=== PATIENT | female | born 1950 | race Caucasian/White ===

== ENCOUNTER 2020-09-18 09:00 | Outpatient (RCR) | payer MEDICARE, OTHER, SELFPAY ==
--- NOTE | 2020-08-16 13:54 | PTOPEVAL ---
INITIAL PHYSICAL THERAPY EVALUATION and PLAN OF CARE Thank you for referring Escobar Jay to [facility].? Escobar is scheduled to be seen for physical therapy? 2x/week for 4 weeks. Please review, sign, date and return this plan of care JULIO. I agree with and certify that the following plan of care is medically necessary. Referring Physician Date Admitting Provider: Attending Provider: Vini Persaud, Referring Provider: *PT Outpatient Evaluation Start: 08/16/20 12:35 Freq: Status: Active Protocol: Document 08/16/20 12:35 JALEEL (Rec: 08/16/20 13:52 JALEEL [id number]) Therapy Assessment Status Assessment Status Assessment Status Evaluation Outpatient Past Medical History Past Medical History Source of Past Medical History Patient Neurological History Hx Neurological Disorders No Significant History Cardiovascular History Hx Hypercholesterolemia Yes Respiratory History Hx Respiratory Disorders No Significant History Gastrointestinal History Hx Diverticulitis Yes Genitourinary History Hx Genitourinary Disorders No Significant History Musculoskeletal History Hx Arthritis Yes: back Hx Other Musculoskeletal Disorders Yes: hyleron injections R knee Endocrine History Hx Hypothyroidism Yes Evaluation Information Problem Diagnosis low back pain Onset June 2020 Subjective Information Busy with getting ready for Query Text:As Reported By Patient/ the holidays - lots of lifting Family , moving of boxes - began to have increase with back pain Pain was present on either side of lower back, then could also shoot across lower back. Had difficulty moving in bed - repositioning. Mornings some discomfort initially. Was worse as the day went on. Gaining some relief of discomfort with anti inflammatory medication from Dr. Persaud. She was involved with a chiropractic office - had access to infrared and ultrasound modalities - not helpful. Had also used ice - didn't help. 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
--- NOTE | 2020-09-18 12:16 | PTOPEVAL ---
PHYSICAL THERAPY DISCHARGE SUMMARY Thank you for referring Escobar Jay to [facility].? Escobar has done well in PT - all goals have been met, HEP updated, and she is to continue with her HEP. I agree with Escobar's discharge from Physical Therapy. Referring Physician Date Admitting Provider: Attending Provider: Vini Persaud, MD Referring Provider: Therapy Assessment Status Assessment Status Assessment Status Discharge Evaluation Information Problem Diagnosis low back pain Subjective Information Escobar reports that after Query Text:As Reported By Patient/ her eye surgery, needed to Family stop exercising for awhile - some return of twinges of discomfort with lifting activities. But she has started to resume them again. Pain Assessment Self Report Pain Assessment Lower Back Reported Pain Level 0 Other Pain Description twinge sensation Lowest Pain Intensity 0 Greatest Pain Intensity 2 Pain Aggravating Factors Exercise/Activity,Lifting Pain Score Pain Score 0: Self Report Cervical and Lumbar ROM Lumbar ROM Lumbar Flexion (0-90) 50 Query Text:Active in Degrees Lumbar Extension (0-40) 20 Query Text:Active in Degrees Lumbar Lateral Flexion Right (0-40) 15 Query Text:Active in Degrees Lumbar Lateral Flexion Left (0-40) 15 Query Text:Active in Degrees Lumbar Comments no discomfort present with trunk ROM this date Palpation Assessment Palpation Palpation In prone - pelvis/sacrum level -P-A mob to sacrum and lumbar spine L5-2 - non tender - good mobility present No increase in paraspinal tissue tension. Special Test-Spine Sacral Special Test Sacral Special Tests Negative standing flexion test - symmetrical SIJ mobility PT Clinical Summary Clinical Summary Protocol: PTEVCODE PT Clinical Summary Modified Oswestry LBP Questionnaire - 8% Escobar has done well in PT. She had a mild flare up of her back pain following eye surgery when she did not perform her HEP. 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 Her trunk AROM has
== END 2020-09-28 08:45 | disposition home or self-care (01) ==
LOC: ANHHIPT 09:00
PROVIDERS: PCP Internal Medicine; Visit Provider Internal Medicine
DX: M54.5 Low back pain (principal)
CPT/HCPCS: 97014; 97110; 97140; 97161; G0283

== ENCOUNTER 2021-06-14 02:23 | Day surgery (SDC) | payer MEDICARE, OTHER, SELFPAY ==
[2021-06-04 10:31] VITALS: BMI 28.3
--- NOTE | 2021-06-14 08:29 | P.PNAN_ITS ---
Anes - Initial Pre Proc Eval Procedure: Operation Date: 06/14/21 10:45 Proposed Procedures p Colonoscopy - Alejandro Craig MD Date/Time: 06/14/21 08:29 Surgeon: Alejandro Craig MD Pre Op Diagnosis: abnormal CAT scan Patient Data Age: 70 Gender: F Height: 1.63 m Weight: 75 kg Allergies Allergy/AdvReac Type Severity Reaction Status Date / Time celecoxib Allergy Severe Swelling Verified 06/14/21 09:27 sulfur Allergy Severe Swelling Verified 06/14/21 09:27 Home Medications Medication Instructions Recorded Confirmed Type Lluvia-Dalton 2 tab-cap PO DAILY 06/04/21 06/14/21 History cholecalciferol (vitamin D3) 250 mcg PO DAILY 06/04/21 06/14/21 History coenzyme Q10 [Co Q-10] 200 mg PO DAILY 06/04/21 06/14/21 History levothyroxine 88 mcg PO DAILY 06/04/21 06/14/21 History tjmfe-2b-zfm-epa-fish oil [[place] 3] 1 cap PO DAILY 06/04/21 06/14/21 History pravastatin 40 mg PO HS 06/04/21 06/14/21 History zolpidem 5 mg PO HS 06/04/21 06/14/21 History Patient hx anesthesia problems: none Family hx anesthesia problems: none Results Review: All pre-operative results and documents have been reviewed as part of the pre-operative evaluation. [facility] Past Medical History Medical History (Updated 06/14/21 @ 08:30 by Aditya Chan MD) Arthritis Hyperlipidemia Hypothyroidism Overweight (BMI 25.0-29.9) Social History Social History Smoking status: Never smoker Alcohol intake: current Drinks per week: 2 Living arrangements: with family Spiritual care concerns: No Anes - Eval Final PreProcedure Day of Procedure 06/14/21 08:29 Patient weight: overweight Heart: regular rate and rhythm Lungs: clear to auscultation and normal air movement Airway: Mallampati scale class II Neurological: alert and oriented Last oral intake: >/= 8 hours ASA classification: II Emergent: no Anesthetic plan: proceed Anesthesia type and monitoring: general GIVS Results Review: All pre-operative results and documents have been reviewed as part of the pre-operative evaluation. Informed Consent: The patient's anesthetic plan and its attendant risks and benefits were discussed with the patient/family/POA. Questions were solicited and answers provided to the satisfaction of the patient/family/POA.
[2021-06-14 09:29] VITALS: BP 148/85; PULSE 89; RESP 16; TEMP 36.7; O2SAT 100; BMI 26.2
[2021-06-14] MEDS: LACTATED RINGERS 1,000 ML 150 ML IV CONT (09:43)
--- NOTE | 2021-06-14 09:51 | WPDGICN ---
Assessment and Plan Assessment and plan (1) Diverticulitis: Code(s): K57.92 - Diverticulitis of intestine, part unspecified, without perforation or abscess without bleeding Status: Acute Assessment and Plan: Patient appears to have had diverticulitis by the results of recent CT scan. Plan is to proceed with colonoscopy to exclude any other explanation for his symptoms. High-fiber diet is advised as some of her symptoms appear to have a spastic component. (2) Abnormal CT scan: Code(s): R93.89 - Abnormal findings on diagnostic imaging of other specified body structures Status: Acute Assessment and Plan: CT scan suggest diverticulitis. Plan is for colonoscopy to exclude any other explanation for her findings. GI Consult Note Consult date/time: 06/14/21 09:51 HPI: Escobar Jay is a 70 year old female Presents for colonoscopy. Patient reports having a normal screening colonoscopy for 5 years ago. Over the last 3 years she has had an annual episode of abdominal pain and has been diagnosed as diverticulitis. In April of this year she developed diffuse bilateral abdominal pain. Associated with irregular bowel movements. Urgent explosive bowel movement shortly after eating. These have persisted. Initially treated with antibiotics in April. She received an additional round of antibiotics [address] scan suggests that she may have diverticulitis. Patient denies any bleeding or weight loss. She states after taking preparation for colonoscopy pain has totally alleviated. Patient denies any fever. She has had no recent travel. She presents today for colonoscopy. Review of Systems Review of Systems: All systems reviewed & are unremarkable except as noted in HPI and below [facility] Past Medical History Medical History (Updated 06/14/21 @ 09:53 by Alejandro Craig MD) Arthritis Hyperlipidemia Hypothyroidism Overweight (BMI 25.0-29.9) Social History Social History Smoking status: Never smoker Alcohol intake: current Drinks per week: 2 Living arrangements: with family Spiritual care concerns: No Meds Home Medications and Allergies Home Medications Medication Instructions Recorded Confirmed Type Lluvia-Dalton 2 tab-cap PO DAILY 06/04/21 06/14/21 History cholecalciferol (vitamin D3) 250 mcg PO DAILY 06/04/21 06/14/21 History coenzyme Q10 [Co Q-10] 200 mg PO DAILY 06/04/21 06/14/21 History levothyroxine 88 mcg PO DAILY 06/04/21 06/14/21 History huzqr-8q-rsb-epa-fish oil [[place] 3] 1 cap PO DAILY 06/04/21 06/14/21 History pravastatin 40 mg PO HS 06/04/21 06/14/21 History zolpidem 5 mg PO HS 06/04/21 06/14/21 History Allergies Allergy/AdvReac Type Severity Reaction Status Date / Time celecoxib Allergy Severe Swelling Verified 06/14/21 09:27 sulfur Allergy Severe Swelling Verified 06/14/21 09:27 Vital Signs Vital Signs - 24 hr 06/14/21 09:29 Temperature 98.1 F Pulse Rate 89 Respiratory Rate 16 Blood Pressure 148/85 H Pulse Oximetry 100 Exam Narrative: Physical exam reveals patient to be alert. Vital signs stable. HEENT exam is unremarkable. Patient is anicteric. Lungs are clear to auscultation and percussion. Heart is without murmur or extra sounds. Abdomen bowel sounds are present soft nontender with no organomegaly. Digital external rectal exam is normal.
[2021-06-14 10:39] VITALS: BP 113/78; PULSE 91; RESP 26; O2SAT 100
[2021-06-14 10:49] VITALS: BP 128/90; PULSE 94; RESP 20; O2SAT 100
[2021-06-14 10:59] VITALS: BP 150/97; PULSE 92; RESP 19; O2SAT 100
== END 2021-06-14 11:07 | disposition home or self-care (01) ==
PROVIDERS: PCP Internal Medicine; Visit Provider Internal Medicine Gastroenterology
PROC: 0DJD8ZZ Inspection of Lower Intestinal Tract, Via Natural or Artificial Opening Endoscopic (ICD-10-PCS; CPT 45378; principal; 2021-06-14 10:45)
DX: K57.30 Diverticulosis of large intestine without perforation or abscess without bleeding (principal); K64.8 Other hemorrhoids; E78.5 Hyperlipidemia, unspecified; E03.9 Hypothyroidism, unspecified
CPT/HCPCS: 45378; J2001; J2704; J7120

== ENCOUNTER → 2021-07-02 10:40 | Outpatient (CLI) | payer MEDICARE, OTHER, SELFPAY ==
--- NOTE | ~2021-07-02 | US_ITS ---
EXAMINATION: US right upper quadrant EXAM DATE: 07/02/2021 10:59 INDICATION: Upper Abdominal Pain TECHNIQUE: Multiple grayscale and Doppler images of the abdomen right upper quadrant were obtained (b y a technologist who performed the scan) and subsequently reviewed. There is no prior study for hugo espinal. FINDINGS: The pancreatic head and body are normal in appearance. The pancreatic tail is not visualized. The l iver has normal echogenicity and contour. There is a left liver lobe cystic region which has several septations, probably a cyst measuring 3.7 x 2.6 x 3.3 cm. There is no evidence of intrahepatic bili saige duct dilation. Portal venous flow was seen in the hepatopedal, normal direction and has normal D oppler waveform. No right-sided hydronephrosis. Common bile duct measures 4 mm, which is normal. The gallbladder wall is normal in thickness, with ex pected amount of distention. No sonographic evidence of pericholecystic fluid. There is no cholelit hiases. Technologist performing exam reports patient did not demonstrate sonographic Cooley's sign. Please note that this sign is less reliable in patients who have received pain medication. IMPRESSION: 1. Left liver lobe lesion likely cyst. 2. Unremarkable gallbladder. Reviewed, dictated and finalized at location A. 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
== END ==
PROVIDERS: PCP Internal Medicine; Visit Provider Internal Medicine
DX: R10.10 Upper abdominal pain, unspecified (principal)
CPT/HCPCS: 76705

== ENCOUNTER 2023-12-30 00:52 | Emergency (ER) | payer MEDICARE, SELFPAY ==
[2023-12-30 00:54] VITALS: BP 171/96; PULSE 90; RESP 16; TEMP 36.6; O2SAT 100
[2023-12-30 01:02] VITALS: BP 168/84; PULSE 83; RESP 15; O2SAT 99
--- NOTE | 2023-12-30 02:13 | ED.GENADULT ---
HPI - General Adult General Chief complaint: Skin/Abscess/Foreign Body Stated complaint: leg swelling and rash Time Seen by Provider: 12/30/23 01:01 Source: patient Limitations: no limitations History of Present Illness HPI narrative: Patient is a 73-year-old female presents to the emergency department complaining of leg swelling bilaterally which she has noticed for the past couple days and seems to be getting worse tonight however it is not starting to improve. Denies any history of this in the past. Patient denies history of heart disease, kidney disease, liver disease. Patient admits to normal urination. Patient denies any chest pain or difficulty breathing. Patient denies any recent injuries or recent illness. Patient denies fevers. Patient denies any new exposures. Patient has not tried anything for the leg swelling the patient admits to recently being switched to a new medication amlodipine and she has been taking this for the past couple weeks. Patient admits to a small rash to the back of her lower legs that she noticed tonight as well that is not painful and non itchy and seems to be overall going away. Related Data Home Medications Medication Instructions Recorded Confirmed Lluvia-Dalton 2 tab-cap PO DAILY 06/04/21 12/08/23 cholecalciferol (vitamin D3) 250 250 mcg PO DAILY 06/04/21 12/08/23 mcg (10,000 unit) capsule coenzyme Q10 200 mg capsule (Co 200 mg PO DAILY 06/04/21 12/08/23 Q-10) cjhdy6-jmq-gtf-other afmcb5w-wnoo 1 cap PO DAILY 06/04/21 12/08/23 oil 350 mg- 400 mg capsule levothyroxine 75 mcg capsule 75 mcg PO DAILY 07/04/22 12/08/23 (Tirosint) Allergies Allergy/AdvReac Type Severity Reaction Status Date / Time celecoxib Allergy Severe Swelling Verified 12/08/23 09:05 sulfur Allergy Severe Swelling Verified 12/08/23 09:05 Review of Systems Review of Systems: All systems reviewed & are unremarkable except as noted in HPI and below PMFSH Past Medical History Medical History Abnormal breast tissue Arthritis Positive DIONNA Carpal tunnel syndrome on right Hyperlipidemia Hypothyroidism Insomnia Vitamin B12 deficiency Vitamin D deficiency Surgical History Surgical History H/O colonoscopy 2020 H/O tubal ligation (~1984) Family History Family History Father Acute myocardial infarction Mother Diabetes mellitus Sibling Atrial fibrillation, chronic sister Social History Social History Smoking status: Never smoker Second hand tobacco smoke exposure: No Alcohol intake: former Drinks per week: 2 Substance use: never Substance use type: does not use Do You Feel Safe in your Home?: Yes Lack of Transportation: No Lack of Food: Never True Current Housing: I Have Housing Concerned About Future Housing: No Difficulty Paying Gas/Electric Bills: No Difficulty Paying for Meds: No Currently Unemployed: No Education: High School Diploma/GED Difficulty w/ Childcare or Family Care: No Living arrangements: with family Additional living arrangements comments: Occupation/Education: retired Gender identity (if verbalized by the patient): Female Sexual Orientation (if Verbalized by the Patient): Straight or Heterosexual Spiritual care concerns: No Agree to blood products: Yes Comments At time of signature, I have reviewed and agree with nursing past medical, surgical, social and family history unless otherwise noted. Please see the nursing chart for further information. There is no relevant family history pertinent to the presenting complaint. Exam Narrative: CONST: No acute distress. Well nourished. HENMT: Head is normocephalic and atraumatic. Moist mucous membranes. No posterior oropharynx erythema.
[2023-12-30 02:20] VITALS: BP 170/88; PULSE 92; RESP 16; O2SAT 98
== END 2023-12-30 02:24 | disposition home or self-care (01) ==
PROVIDERS: Emergency Provider Student in an Organized Health Care Education/Training Program; PCP Nurse Practitioner Family
DX: R60.0 Localized edema (principal); E78.5 Hyperlipidemia, unspecified; E03.9 Hypothyroidism, unspecified; E53.8 Deficiency of other specified B group vitamins; E55.9 Vitamin D deficiency, unspecified; M19.90 Unspecified osteoarthritis, unspecified site
CPT/HCPCS: 99281

== ENCOUNTER 2024-01-15 13:15 | Outpatient (CLI) | payer MEDICARE, SELFPAY ==
--- NOTE | ~2024-01-15 | DEXA_ITS ---
Bone Density Report Name: LAURA DIANE Age: 73 Sex: Female Ethnicity: White Date of : 1950 Indication: postmenopausal; screening for osteoporosis; height loss; Referring Provider: AUNDREA ALCAZAR Study: Bone densitometry was performed. Exam Date: January 15, 2024 Accession number: [id number] Bone Density: Region BMD T-score Z-score Classification AP Spine(L1-L4) 0.843 -1.9 0.4 Osteopenia Femoral Neck (Left) 0.623 -2.0 -0.1 Osteopenia Total Hip (Left) 0.854 -0.7 0.9 Normal Femoral Neck (Right) 0.605 -2.2 -0.3 Osteopenia Total Hip (Right) 0.885 -0.5 1.2 Normal Total Hip Mean 0.869 -0.6 1.1 Normal World Health Organization criteria for BMD impression classify patients as: Normal (T-score at or above -1.0), Osteopenia (T-score between -1.0 and -2.5), or Osteoporosis (T-score at or below -2.5). 10-year Fracture Risk(1): Major Osteoporotic Fracture 13% Hip Fracture 3.0% Reported Risk Factors: [place] (), Neck BMD=0.605, BMI=28.5 (1) FRAX(R) Version 3.08. Fracture probability calculated for an untreated patient. Fracture probability may be lower if the patient has received treatment. Clinical Information Provided by Patient: Has used the following medications: HRT (i.e. estrogen/hormone therapy), Vitamin D, Calcium Patient maximum height was 65 No regular weight bearing exercise Drinks caffeinated beverages Onset of menses at age 15 Number of children 2 Impression: The patient has low bone mass, based on the Right Femoral Neck T-score. The patient has an estimated ten-year risk of hip fracture of 3% and an estimated ten-year risk of major fracture of 13%, based on the WHO FRAX algorithm. Discussion: BONE DENSITY IS LOW AT ONE OR MORE SKELETAL SITES. THE PATIENT'S BMD AND CLINICAL RISK FACTORS CONTRIBUTE TO THIS PATIENT'S INCREASED RISK OF FRACTURE. This patient's lowest T-score is low at one or more skeletal sites. It meets the World Health Organization's (WHO) criteria for ?low bone mass? (T-score between -1.0 and -2.5). The patient's 10-year risk of hip fracture as calculated by FRAX exceeds the threshold where pharmacological therapy is recommended by the National Osteoporosis Foundation (NOF). However, all treatment decisions require clinical judgment and consideration of individual patient factors, including patient preferences, comorbidities, previous drug use, risk factors not captured in the FRAX model (e.g., frailty, falls, vitamin D deficiency, increased bone turnover, interval significant decline in bone density) and possible under or overestimation of fracture risk by FRAX. The patient should follow a healthful lifestyle (good nutrition with adequate calcium and vitamin D, and appropriate weight-bearing exercise). Follow-Up: Consider a repeat BMD and Vertebral Fracture Assessment (VFA) exam in 2 years or sooner if medically nec
== END 2024-01-15 13:16 | disposition home or self-care (01) ==
PROVIDERS: PCP Nurse Practitioner Family; Visit Provider Nurse Practitioner Family
DX: M85.89 Other specified disorders of bone density and structure, multiple sites (principal); N95.8 Other specified menopausal and perimenopausal disorders; Z78.0 Asymptomatic menopausal state; Z13.820 Encounter for screening for osteoporosis
CPT/HCPCS: 77080

== ENCOUNTER 2024-07-06 09:29 | Outpatient (CLI) | payer MEDICARE, SELFPAY ==
--- NOTE | 2024-07-06 09:30 | EST_ITS ---
Patient Info Name: Escobar Jay Age: 73 years : 1950 Gender: Female Ht: 64 in Wt: 160 lbs BSA: 1.83 m2 HR: 67 bpm BP: 136 / 75 mmHg Heart Rhythm: Sinus Rhythm Exam Date: 07/06/2024 10:00 AM Exam Location: Echo Lab Patient Status: Outpatient Admit Date: 07/06/2024 Staff Ordering Physician: Angel Crowe DO Attending Provider: Angel Crowe DO Exercise Technologist: Ashwini Durant RDCS Exercise Physician: Angel Crowe DO Exam Type: CA stress test treadmill Study Info A treadmill exercise stress test was performed. Summary 1. 1. Negative Angel exercise stress test for ischemic ST changes by ECG criteria. 2. 2. Good functional capacity, achieving 7 METs of workload. 3. 3. Appropriate HR response to exercise. 4. 4. Appropriate HR recovery at 1 minute post exercise. 5. 5. No imaging with stress testing. 6. 6. Patient informed of the above results. Protocol: Angel Stress ECG Details Stage: REST Duration (min): 1 min : 32 sec Speed (mph): 0.0 Grade (%): 0 HR (bpm): 67 SBP (mmHg): 136 DBP (mmHg): 75 METS: --- Stage: REST Duration (min): 5 min : 38 sec Speed (mph): 0.0 Grade (%): 0 HR (bpm): 79 SBP (mmHg): 136 DBP (mmHg): 75 METS: --- Stage: STAGE 1 Duration (min): 1 min : 0 sec Speed (mph): 1.7 Grade (%): 10 HR (bpm): 98 SBP (mmHg): 136 DBP (mmHg): 75 METS: --- Stage: STAGE 1 Duration (min): 2 min : 0 sec Speed (mph): 1.7 Grade (%): 10 HR (bpm): 114 SBP (mmHg): 136 DBP (mmHg): 75 METS: --- Stage: STAGE 1 Duration (min): 3 min : 0 sec Speed (mph): 1.7 Grade (%): 10 HR (bpm): 122 SBP (mmHg): 175 DBP (mmHg): 63 METS: --- Stage: STAGE 2 Duration (min): 1 min : 0 sec Speed (mph): 2.5 Grade (%): 12 HR (bpm): 129 SBP (mmHg): 175 DBP (mmHg): 63 METS: --- Stage: STAGE 2 Duration (min): 1 min : 30 sec Speed (mph): 2.5 Grade (%): 12 HR (bpm): 133 SBP (mmHg): 175 DBP (mmHg): 63 METS: --- Stage: RECOVERY Duration (min): 0 min : 29 sec Speed (mph): 0.0 Grade (%): 0 HR (bpm): 128 SBP (mmHg): 184 DBP (mmHg): 64 METS: --- Stage: RECOVERY Duration (min): 1 min : 29 sec Speed (mph): 0.0 Grade (%): 0 HR (bpm): 110 SBP (mmHg): 184 DBP (mmHg): 64 METS: --- Stage: RECOVERY Duration (min): 2 min : 29 sec Speed (mph): 0.0 Grade (%): 0 HR (bpm): 97 SBP (mmHg): 184 DBP (mmHg): 64 METS: --- Stage: RECOVERY Duration (min): 3 min : 4 sec Speed (mph): 0.0 Grade (%): 0 HR (bpm): 93 SBP (mmHg): 187 DBP (mmHg): 89 METS: --- Rest HR: 79 bpm Peak HR: 133 bpm Rest Sys BP: 136 mmHg Peak Sys BP: 187 mmHg Max Pred HR: 148 bpm % Max Pred HR: 90 % Target HR: 126 bpm Max RPP: 24,871 bpm*mmHg [place] Score: 0 Termination Reason: Reached target heart rate or workload Cardiac Symptoms: Shortness of breath Max ST Seg Deviation: -0.80 mm Total Time: 4 min : 30 sec Rest Gomez BP: 75 mmHg Peak Gomez BP: 89 mmHg Angina Score: None Total METS: 7.1 Resting ECG Sinus rhythm. Stress ECG No ST changes. Arrhythmias None. Report Signatures
== END 2024-07-06 09:30 | disposition home or self-care (01) ==
PROVIDERS: PCP Nurse Practitioner Family; Visit Provider Internal Medicine Cardiovascular Disease
DX: R07.9 Chest pain, unspecified (principal)
CPT/HCPCS: 93017

== ENCOUNTER 2024-11-13 16:53 | Emergency (ER) | payer MEDICARE, SELFPAY ==
--- NOTE | ~2024-11-13 | XR_ITS ---
XR ankle LT min 3V Ordering provider: ELIJAH Snow History: . fall from lawnmower today, medial pain . Comparison: None. FINDINGS: BONES: No acute fracture or dislocation. JOINT SPACES: The ankle mortise is normal. SOFT TISSUES: Normal. Calcaneal spur. Ossification of the insertion of the tendo Achilles. IMPRESSION: No acute osseous abnormality left ankle. Reviewed, dictated and finalized at location A.
--- NOTE | ~2024-11-13 | XR_ITS ---
XR foot LT min 3V Ordering provider: ELIJAH Snow History: . fall from lawnmower, medial pain . Comparison: None. FINDINGS: BONES: No acute fracture or dislocation. JOINT SPACES: Normal. No tarsal coalition. SOFT TISSUES: Normal. Ossification of the insertion of the tendo Achilles is seen. IMPRESSION: No acute osseous abnormality left foot. Reviewed, dictated and finalized at location A.
--- OUTSIDE RECORDS SUMMARY | 2024-11-13 16:56 | XMS_ITS | Clinical Summary ---
Author Organization [facility] Address [address] [place] [address] Care Team Providers Care Passenger Booking Clerk Name Role Phone Jonathan Molina MD Primary Care Provider [phone] Allergies Active Allergy Reactions Criticality Noted Date Comments Celecoxib Swelling,Unknown,Oth er (see comment) High 03/05/2021 Celebrex Sulfa Antibiotics Swelling,Unknown,Oth er (see comment) Medium 07/03/2010 Numb tongue Tongue swelling Substance with sulfonamide structure and antibacterial mechanism of action (substance) Medications levothyroxine 88 MCG tablet Take 88 mcg by mouth daily. Active pravastatin 40 MG tablet Take 1 tablet (40 mg total) by mouth daily. @@ HS Active HYDROcodone-aceta minophen 5-325 MG tabletIndications :Acute Pain < 7 Day Supply Take 1 tablet by mouth every 6 (six) hours as needed for Pain. Indications: Acute Pain < 7 Day Supply 10 tablet Active ondansetron 4 MG disintegrating tablet Take 1 tablet (4 mg total) by mouth every 8 (eight) hours as needed for Nausea. 20 tablet Active lisinopril (PRINIVIL) 10 MG tablet Take 1 tablet (10 mg total) by mouth daily. Active TIROSINT 75 MCG capsule Take 1 capsule by mouth every morning. Active zolpidem (AMBIEN) 5 MG tablet Take 1 tablet (5 mg total) by mouth nightly at bedtime. at bedtime. Active vitamin E 100 UNIT capsule Take by mouth. Ac tive calcium citrate-vitamin D-magnesium 600 mg/1000 IU/300 mg oral liquid Take by mouth. Act claritza Vitamin B12 100 MCG tablet Take 0.5 tablets (50 mcg total) by mouth daily. Active cefdinir (OMNICEF) 300 MG Cap capsuleIndication s:Bronchitis Take 1 capsule (300 mg total) by mouth 2 (two) times daily. 20 capsule Active cyanocobalamin (VIT B-12) 250 MCG Tab INJECT 1 ML EVERY WEEK BY SUBCUTANEOUS ROUTE IN THE MORNING FOR 90 DAYS. 2024 Discontinued( Pt. elected to discontinue med) benzonatate (TESSALON PERLES) 100 MG capsuleIndication s:Bronchitis Take 1 capsule (100 mg total) by mouth 3 (three) times daily as needed for Cough. 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 Vitamin B12 deficiency (non anemic) 12/25/2022 Dysfunction of both eustachian tubes 03/01/2022 Sensorineural hearing loss (SNHL) of both ears 0 03/01/2022 Diverticulitis 03/04/2019 Overview (10/18/2024): Avoid consuming nuts abs berries to avoid flair ups Hypercholesterolemia 10/06/2017 Hyperthyroidism 10/06/2017 Encounters Date Type Department Care Team Description 10/18/2024 2:15 PM CDT Office Visit [facility] [id number] [place] [phone] Karina Brock PA Cough (X 2-3 weeks, chest congestion) 10/18/2024 12:39 PM CDT - 10/18/2024 11:59 PM CDT Hospital Encounter [facility] [address] [place] [id number] Karina Brock PA Discharge Disposition: Home or Self Care (Routine Discharge) 10/18/2024 Travel 10/15/2024 9:52 AM CDT - 10/15/2024 11:59 PM CDT Hospital Encounter [facility] [address] [place] [address] Dat Munoz MD Discharge Disposition: Home or Self Care (Routine Discharge) 10/15/2024 Travel from Last 3 Months Immunizations Name Administration Dates Next Due Influenza Adult (Generic) 10/12/2013 Tdap (Boostrix) 06/19/2023,10/12/2013 Family History Medical History Relation Comments Breast Cancer Neg Hx Social History Tobacco Use Types Packs/Day Years Used Date Smoking Tobacco: Never Smokeless Tobacco: Never Tobacco Cessation:Counseling Given: No Alcohol Use Standard Drinks/Week Comments Not Currently 0 (1 standard drink = 0.6 oz pur e alcohol) PHQ-2 Answer Date Recorded Patient Health Questionnaire-2 Score 0 10/18/2024 Comments No Sex and Gender Information Value Date Recorded Sex Assigned at Not on file Legal Sex Female 7:46 PM CDT Gender Identity Female 08/14/2021 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 Sexual Orientation Not on file Last Filed Vital Signs Vital Sign Reading Time Taken Comments Blood Pressure 132/76 10/18/2024 11:59 AM CDT Pulse 80 10/18/2024 11:59 AM CDT Temperature 36.6 C (97.9 F) 10/18/2024 11:59 AM CDT Respiratory Rate 20 10/18/2024 11:59 AM CDT Oxygen Saturation 98% 10/18/2024 11:59 AM CDT Inhaled Oxygen Concentration - - Weight 72.8 kg (160 lb 6.4 oz) 10/18/2024 11:59 AM CDT Height 165.1 cm (5' 5 ) 10/18/2024 11:59 AM CDT Body Mass Index 26.69 10/18/2024 11:59 AM CDT Plan of Treatment Health Maintenance Due Date Last Done Comments Colorectal Cancer Screening Colonoscopy (10 Years) 1950 Hepatitis C 1969 Zoster Vaccines (1 of 2) 2001 Annual Medicare Wellness Visit 2016 Dexa Scan (General) 2016 Pneumococcal Vaccine: 65+ Years (1 of 1 - PCV) 2016 COVID-19 Vaccine ( season) 2024 RSV Immunization or 60+ Years (1 - 1-dose 75+ series) 2026 Mammogram Screening 10/15/2026 10/15/2024, 05/21/2024, 11/10/2023, Additional history exists DTaP, Tdap and Td Vaccines (3 - Td or Tdap) 06/19/2033 06/19/2023, 10/12/2013 PHQ-2 (Physician [place]) Completed 10/18/2024 Meningococcal B Vaccine Aged Out No l onger eligible based on patient's age to complete this topic Meningococcal Vaccine Aged Out No dulce lexi eligible based on patient's age to complete this topic RSV Immunizations Under 20 Months Aged Out No longer eligible based on patient's age to complete this topic Procedures Procedure Name Priority Date/Time Associated Diagnosis Comments XR CHEST PA+LAT STAT 10/18/2024 12:58 PM CDT Chronic cough Bronchitis MG SCREENING W OSVALDO ANTONIETA DIGI Routine 10/15/2024 10:38 AM CDT Encounter for screening mammogram for malignant neoplasm of breast from Last 3 Months Results * XR CHEST PA+LAT (10/18/2024 12:58 PM CDT) Anatomical Region Laterality Modality Chest Radiographic Hortencia ging 10/18/2024 12:5 8 PM CDT Impressions 10/18/2024 1:00 PM CDT =====IMPRESSION:===== No acute findings. Ordered By: KARINA BROCK Interpreted By: Miguel Hurst, 10/18/2024 12:58 PM Narrative 10/18/2024 1:00 PM CDT [facility] [address] [place] [address] EXAMINATION: PA AND LATERAL CHEST Exam date/time: 10/18/2024 12:47 PM Reason For Exam: chronic cough Comparison: None Technique: 2 views. Findings: Heart size normal. Proximal airways unremarkable. No suspicious pulmonary lesion, pneumothorax, or pleural effusion. Procedure Note Terrance Hurst MD - 10/18/2024 [place] [id number] [facility]. [place] [id number] EXAMINATION: PA AND LATERAL CHEST Exam date/time: 10/18/2024 12:47 PM Reason For Exam: chronic cough Comparison: None Technique: 2 views. Findings: Heart size normal. Proximal airways unremarkable. No suspiciouspulmonary lesion, pneumothorax, or pleural effusion. =====IMPRESSION:===== No acute findings. Ordered By: KARINA BROCK Interpreted By: Miguel Hurst, 10/18/2024 12:58 PM us Karina Brock PA GENERAL IMAGING Final Result * MG SCREENING W OSVALDO ANTONIETA DIGI (10/15/2024 10:38 AM CDT) Anatomical Region Laterality Modality Breast Bilateral Mammography 10/15/2024 4:06 PM CDT Impressions 10/15/2024 4:18 PM CDT ===== IMPRESSION: ===== 1. Stable mammographic appearance with no new findings to suggest malignancy in either breast. Assessment: ACR BI-RADS 2 - BENIGN FINDING(S) Recommendation: 1:Routine Screening Bilateral Comments: Ordered By: DAT MUNOZ Interpreted By: Miguel Hurst, 10/15/2024 4:06 PM Narrative 10/15/2024 4:18 PM CDT [facility] [address] [place], [place] [id number] EXAMINATION: Digital bilateral screening mammogram with 3-D tomosynthesis EXAM DATE/TIME: 10/15/2024 10:00 AM REASON FOR EXAM: Screening COMPARISON: 05/21/2024. 10/15/2023 Technique: Digital screening mammography of both breasts was performed in addition to 3-D Tomosynthesis technique. This study was read with the assistance of a computer-aided detection system. Tissue density: The breasts are heterogeneously dense, which may obscure small masses. Findings: There is no new focal asymmetry, dominant mass lesion, area of skin thickening, or cluster of suspicious appearing calcifications in either breast to suggest malignancy. us Dat Munoz MD MAMMO Final Result from Last 3 Months Insurance MEDICARE [facility] Care Teams Passenger Booking Clerk Relationship Specialty Start Date End Date Jonathan Molina MD [address] [place] [id number] PCP - General FAMILY PRACTICE 03/27/22
--- OUTSIDE RECORDS SUMMARY | 2024-11-13 16:56 | XMS_ITS | Data Portability ---
Author Organization [facility], [facility] Address [address] [address] Care Team Providers Care Sliding Joint Maker Name Role Phone ROBB HODGE Primary Care Provider STACEY Boyd Referring Provider Assessment No assessment recorded. Plan of Treatment Reminders Order Date Submit Date Provider Last Modified By Organization Details Last Modified Time Details Appointments None recorded. Lab testosteron e, free + total, serum - Non-fasting 2017 018 [email or web address] Not available 8 08:13:18 CBC w/ auto diff 2017 018 SHI Not available 8 09:32:33 vitamin D, 25-hydroxy, total, serum 2017 018 [email or web address] Not available 8 08:13:18 Referral None recorded. Procedures None recorded. Surgeries None recorded. Imaging XR, knee 2017 018 [email or web address] Not available 8 17:45:57 US, lower extremity, nonvascular 2017 018 [email or web address] Not available 8 09:43:01 Medication Orders hydrocodone 5 mg-acetamin ophen 325 mg tablet 2017 018 [email or web address] Not available 8 15:54:15 clindamycin HCl 300 mg capsule 2017 018 [email or web address] Not available 8 17:45:57 diazepam 10 mg tablet 2017 018 [email or web address] Not available 8 17:45:57 Patient TargetsNo targets recorded. Patient Instructions Encounter Date Encounter Id Patient Instructions Last Modified By Organization Details Last Modified Time 10/07/2017 [id number] knee arthritis: care instructions Not available 10/07/2017 17:45:57 After review of radiographic and examination findings, we discussed treatment options available. These included corticosteroid injection, viscous supplementation, bracing of the knee, observation, surgical referral, physical therapy, pain management, and/or stem cell treatment. The patient is definitely interested in non-surgical alternatives. If they choose to undergo stem cell biologic treatment, it is understood that it is considered investigational and off label use of the product by FDA, that it is not a covered benefit by insurance, and that there is no guarantee of symptom improvement. If opting to undergo biologic treatment, an order was given for laboratory studies to be completed. We reviewed the stem cell treatment and depth. Information packet was given to and reviewed with the patient. All questions were answered related to the procedure, post procedure expectations, and cost associated with treatment. We also discussed that sometimes more than one biologic treatment is required to attain desired efficacy. They will call our office if they desire to schedule an appointment for treatment or review any of the other treatment options discussed. Patient will also RTC or call for any worsening, questions or concerns prn. [email or web address] Not available 10/10/2017 09:43:14 11/11/2017 [id number] knee arthritis: care instructions [email or web address] Not available 11/11/2017 16:30:56 Reason for Referral None Reported. Results Created Date Observation Date Name Description Value Unit Range Abnormal Flag Note LastModifiedBy Organization Detail LastModifiedTime Result Notes None recorded. Problems Name Problem SNOMED Code Status Onset Date Resolution Date Notes Provider Name and Address Organization Details Recorded Time Hypercholestero lemia 96683058 Active 2017 Rui linton [facility] 8 16:43:33 Hyperthyroidism 58259054 Active 2017 Rui linton [facility], [facility] 8 16:43:42 Problem Notes None recorded. Medical Equipment None Reported. Allergies Allergen ID Allergen Name Allergen Category Reaction Reaction Severity Criticality Documentation Date Start Date Code Code System Note Provider Name and Address Organization Details Recorded Time 46340 Substance with sulfonami de structure and antibacte rial mechanism of action (substanc e) medicatio n Not available Not available Not available 10/07/2017 26475 8003 SNOMED Rui Dutta [facility] 8 16:43:10 93641 Celebrex medicatio n Not available Not available Not available 10/07/2017 82341 7 RxNorm Rui Dutta [facility] 8 16:43:18 Medications Name Sig Start Date Stop Date Status Note LastModified by Organization Details LastModified Time doxycycline hyclate 100 mg capsule active Not Available Not Available N ot Available clindamycin HCl 300 mg capsule Take 3 capsules (total of 900mg) po one hour prior to procedure. One time dose. active Not Available Not Available No t Available azithromycin 250 mg tablet active Not Available Not Availabl e Not Available pravastatin 40 mg tablet active Not Available Not Available Not Available hydrocodone 5 mg-acetaminop hen 325 mg tablet Take 1 tablet every 6 hours by oral route with meals. active Not Available Not Available No t Available peg-electroly te solution 420 gram oral solution active Not Available Not Available Not Available doxycycline monohydrate 100 mg capsule active Not Available Not Available Not Available diazepam 10 mg tablet Take 1 tablet(s) 1 hr PRIOR to appointmen t. 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 active Not Available Not Available No t Available Vitals Date Recorded Body height Body mass index (BMI) Body weight Heart rate Systolic blood pressure Diastolic blood pressure Provider Name and Address Organization Details Last Updated DateTime 8 165.1 cm 27.5 kg/m2 32000.7 4 g 80 /min 136 mm[Hg] 78 mm[Hg] Rui Luzmaria [facility] 8 16:42:46 Date Recorded Body height Body mass index (BMI) Body weight Heart rate Systolic blood pressure Diastolic blood pressure Provider Name and Address Organization Details Last Updated DateTime 8 165.1 cm 27.5 kg/m2 50779.7 4 g 93 /min 136 mm[Hg] 87 mm[Hg] Rani Cerna [facility] 8 15:53:43 Social History Question Answer Notes LastModified by Organizat ion Details LastModified Time Tobacco Smoking Status Never Smoker Rui linton [facility], [facility] 10/07/2017 16:44:05 What Is Your Level Of Alcohol Consumption? Occasional [email or web address] Information not available 10/07/2017 What Is Your Occupation? Retired [email or web address] Information not available 10/07/2017 Live Alone Or With Others? With Others [email or web address] Information not available 10/07/2017 Marital Status [email or web address] Informatio n not available 10/07/2017 What Was The Date Of Your Most Recent Tobacco Screening? 11/11/2017 Information not available 02/25/2019 What Types Of Sporting Activities Do You Participate In? Bike [email or web address] Information not available 10/07/2017 General Stress Level Medium [email or web address] Information not available 10/07/2017 Sex: Unknown Functional Status Question Answer Note LastModified by Organization D etails LastModified Time What is your exercise level? Moderate [email or web address] Information not available 10/07/2017 Mental Status None recorded. Family History Relationship Description Onset Age of this Age Resolved Age Notes LastModified by Organization Details LastModified Time Father No current problems or disability [email or web address] Not available 10/07 16:10:41 Mother Diabetes mellitus [email or web address] Not available 2017 16:43:53 Medical History Condition Response Coronary Artery Disease N HIV or AIDS N Gout N Kidney Stones N Hyperthyroidism N Head Trauma/Injury N Hernia N Depression N COPD N Blood Clots N Lung Disease N Hypothyroidism N Pacemaker N Anxiety Disorder N Arthritis N Cancer N Stroke N Neck Injury N Leg or Foot Ulcers N High Cholesterol N Liver Disease N Rheumatoid Arthritis N Headaches N Fibromyalgia N Kidney Disease N Heart Problems N Migraines N Thyroid Problems N Anemia N Multiple Sclerosis N Tendon Tear N Ulcers N Heart Attack ([place]) N Diabetes N Bleeding Disorder N Seizures/Epilepsy N Tuberculosis N Urinary Tract Infection N Back Problems N Diverticulitis N Asthma N Lupus N Peripheral Vascular Disease N Sleep Disorder N GERD/Reflux N Hepatitis N Aneurysm N Heart Disease N Pulmonary Embolism N Hypertension N Osteoporosis N Gynecological HistoryNo gynecological history recorded. Obstetrics History GPAL:G 0 P 0 0 0 0 Past Encounters Encounter ID Performer Location Encounter Start Date Encounter Closed Date Diagnosis/Indication Diagnosis SNOMED-CT Code Diagnosis ICD10 Code Diagnosis Note [id number] Charanjit Nievesonesimo [facility] [address] [place] [address] 10/07/2017 16:01:16 10/07/2017 17:28:50 Osteoarthritis of knee 815970783 M17.11 Bilateral knee pain, RIGHT greater than LEFT, consistent with: RIGHT knee grade 2 medial compartmen t and mild patellofem oral osteoarthr osis; medial meniscal derangemen t with mild extrusion; no instabilit y Or malalignme nt. LEFT knee grade 1 medial compartmen t with mild patellofem oral osteoarthr osis; medial meniscal derangemen t without extrusion; no instabilit y or malalignme nt. Anxiety 94973689 F41.9 Malaise and fatigue 2717 85237 R53.83 E27.1 M89.9 M94.9 Antibiotic prophylaxis indicated 922424154 Z78.9 Derangemen t of meniscus 487936330 M23.306 M23.307 [id number] Stacey Graham [facility] [address] [place] [address] 11/11/2017 15:02:35 11/11/2017 16:59:54 Osteoarthritis of knee 935702146 M17.11 Bilateral knee pain, RIGHT greater than LEFT, consistent with: RIGHT knee grade 2 medial compartmen t and mild patellofem oral osteoarthr osis; medial meniscal derangemen t with mild extrusion; no instabilit y Or malalignme nt. LEFT knee grade 1 medial compartmen t with mild patellofem oral osteoarthr osis; medial meniscal derangemen t without extrusion; no instabilit y or malalignme nt. Health Concerns Section Related Observation LastModified by Organization Detai ls LastModified Time None Recorded Concern Status LastModified by Organization Details LastModified Time None Recorded Advance Directives Directive None Recorded Payers Encounter Date Sequence Insurance Name Policy Number Policy Kaplan Covered Member ID Kaplan Member ID Guarantor Name 10/07/2017 1 [place] Escobar Jay [id number] Escobar Jay 10/07/2017 2 [employer] Alexandra Jay [id number] Escobar Jay 11/11/2017 1 [place] Escobar Jay [id number] Escobar Pierre 11/11/2017 2 [employer] Tijerinafidelia [id number] Escobar Tijerinafidelia Notes Date Note Type Note Provider Name and Address Organization Details Recorded Time 10/07/2017 text/html Escobar Is a pleasant 67-year-old female who presents to clinic today for evaluation of her chronic RIGHT greater than LEFT knee pain. She was initially seen for her knee pain in early 2016 at [facility] by Dr. Hiram Head. She was given a corticosteroid injection to both knees at that time which offered moderate improvement of her LEFT knee pain. X-rays of the knees demonstrated mild primary osteoarthrosis. She continued to have problems with her RIGHT. She did follow-up with FUNMILAYO Agarwal who again injected her RIGHT knee with a corticosteroid in June 2017 and further proceeded with MRI examination. MRI examination dated 07/08/17 revealed a RIGHT knee medial meniscal tear on the posterior horn. She got some improvement for a couple of weeks from the second injection to the RIGHT knee. She does have intermittent, but mild, recurrent symptoms with the LEFT knee. She discussed arthroscopic surgical intervention To the RIGHT knee. She is looking for nonsurgical alternatives to treating her knee pain. Her son-in-law, Pan Leiva, he has been evaluated and treated in our clinic. She is interested in being evaluated for stem cell biologic treatment. She is currently retired but does like to cycle. This does not seem to exacerbate her knee pain. She is otherwise very healthy. ASHLEY Smith [employer] [employer] 11/11/2017 09:06:33 11/11/2017 text/html No internal davis ge - See last visit. ASHLEY Fajardo [employer], [employer] 11/11/2017 17:24:01 OBGyn Episode No OBEpisode recorded.
--- OUTSIDE RECORDS SUMMARY | 2024-11-13 16:56 | XMS_ITS | Clinical Summary ---
Author Organization [facility] [employer] Address [address] [place] [address] Care Team Providers Care Supervisor Sleeping Bag Department Name Role Phone Jonathan Molina MD Primary Care Provider [phone] Allergies Active Allergy Reactions Criticality Noted Date Comments Celecoxib Other (See comments),Swelling High 03/05/2021 Sulfa (Sulfonamide Antibiotics) Swelling Medium 07/03/2010 Tongue swelling Medications Tirosint 75 mcg capsule Take 1 capsule (75 mcg total) by mouth every morning 2 Active pravastatin (PRAVACHOL) 40 mg tablet Take 1 tablet (40 mg total) by mouth nightly 2 Active triamcinolone (NASACORT) 55 mcg nasal inhalerIndicati ons:Dysfunction of both eustachian tubes Administer 2 sprays into each nostril daily 1 g 3 2 Active Active Problems Problem Noted Date Diagnosed Date Dysfunction of both eustachian tubes 03/01/2022 Sensorineural hearing loss (SNHL) of both ears 0 03/01/2022 Surgical History Surgery Date Site/Laterality Comments CARPAL TUNNEL RELEASE EYE SURGERY KNEE SURGERY BLEPHAROPLASTY Bilateral Medical History Medical History Date Comments Thyroid disease HL (hearing loss) Family History Medical History Relation Name Comments Diabetes Mother Heart disease Sister Thyroid disease Sister Relation Name Status Comments Mother Sister Social History Tobacco Use Types Packs/Day Years Used Date Smoking Tobacco: Never Smokeless Tobacco: Never Comments Unknown Sex and Gender Information Value Date Recorded Sex Assigned at Not on file Legal Sex Female 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 Gender Identity Not on file Sexual Orientation Not on file Obstetrics History Last Filed Vital Signs Vital Sign Reading Time Taken Comments Blood Pressure 132/80 07/14/2023 2:32 PM INSTRUMENT REPAIRER HELPER Pulse 87 07/14/2023 2:32 PM INSTRUMENT REPAIRER HELPER Temperature 37.1 C (98.7 F) 07/14/2023 2:32 PM INSTRUMENT REPAIRER HELPER Respiratory Rate 16 07/14/2023 2:32 PM INSTRUMENT REPAIRER HELPER Oxygen Saturation 98% 07/14/2023 2:32 PM INSTRUMENT REPAIRER HELPER Inhaled Oxygen Concentration - - Weight 72.6 kg (160 lb) 07/14/2023 2:32 PM INSTRUMENT REPAIRER HELPER Height 157.5 cm (5' 2 ) 07/14/2023 2:32 PM INSTRUMENT REPAIRER HELPER Body Mass Index 29.26 07/14/2023 2:32 PM INSTRUMENT REPAIRER HELPER Plan of Treatment Health Maintenance Due Date Last Done Comments Breast Cancer Screening-Mammogram 1951 Colon Cancer Screening-Colonoscopy 1950 Depression Screening 1950 Fall Risk Assessment 1950 Hepatitis C Screening 1950 Osteoporosis Screening-Bone Density Scan 1951 Hepatitis B Screening 1969 Zoster Vaccine (1 of 2) 2001 Well Visit 65+ 2016 Pneumococcal vaccine 65+ (2 of 2 - PPSV23) 05/31/2020 05/31/2019 Covid-19 Vaccine ( season) 2024 06/26/2021, 10/25/2020, 10/01/2020 Influenza Vaccine (#1) 2024 , 05/31/2019, 10/12/2013 DTaP/Tdap/Td Vaccine (3 - Td or Tdap) 06/19/2033, 10/12/2013 Insurance MEDICARE [facility] MEDICARE [facility] Care Teams Supervisor Sleeping Bag Department Relationship Specialty Start Date End Date Jonathan Molina MD [address] [place] [id number] PCP - General Family Medicine 07/14/23
--- OUTSIDE RECORDS SUMMARY | 2024-11-13 16:56 | XMS_ITS | Encounter Summary ---
Author Organization [facility] Address [address] [place] [address] Care Team Providers Care Wireless Communications Engineer Name Role Phone Vini Persaud MD Primary Care Provider [phone] Jonathan Molina MD Primary Care Provider [phone] Encounter Details Date Type Department Care Team (Late st Contact Info) Description 01/28/2013 Abstract [facility] CONVERSION [address] [place] [address] , Generic ConversionMD Social History Tobacco Use Types Packs/Day Years Used Date Smoking Tobacco: Never Assessed Comments Unknown Sex and Gender Information Value Date Recorded Sex Assigned at Not on file Legal Sex Female 7:46 PM CDT Gender Identity Female 08/14/2021 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
--- OUTSIDE RECORDS SUMMARY | 2024-11-13 16:56 | XMS_ITS | Data Portability ---
Author Organization [place] [facility], Main Office Address [address] [place] [address] Care Team Providers Care Mingle Operator Name Role Phone ROBB HODGE Primary Care Provider ROBB HODGE Referring Provider Assessment No assessment recorded. Plan of Treatment Reminders Order Date Submit Date Provider Last Modified By Organization Details Last Modified Time Details Appointments None recorded. Lab None recorded. Referral None recorded. Procedures None recorded. Surgeries None recorded. Imaging None recorded. Medication Orders cyanocobala min (vit B-12) 1,000 mcg/mL injection solution 2022 023 [id number], [address], [address], 09:59:49 Tirosint 75 mcg capsule 2022 023 [id number], [address] [place] [address], [address], 3 19:54:09 Patient TargetsNo targets recorded. Patient InstructionsNo instructions recorded. Reason for Referral None Reported. Results Created Date Observation Date Name Description Value Unit Range Abnormal Flag Note LastModifiedBy Organization Detail LastModifiedTime 07/23/20 21 07/26/2021 IGP,R FX APTIM A HPV ALL PTH performed by: Justin Hauser Not Available [facility] [address] [place], [address], 07/26/2021 10:10:47 07/23/20 21 07/26/2021 IGP,R FX APTIM A HPV ALL PTH diagnosis: commen t NEGAT TREVON FOR INTRA EPITH ELIAL LESIO N OR MALIG SHANELL . CELLU GRECIA LAYTON ES ASSOC IATED WITH ATROP HY ARE PRESE NT. Not Available [facility] [address] [place], [address], 07/26/2021 10:10:47 07/23/20 21 07/26/2021 IGP,R FX APTIM A HPV ALL PTH specimen adequacy: commen t Satis facto ry for evalu ation . Endoc ervic al and/o r squam ous metap lasti c cells (endo cervi mayi compo nent) are prese nt. Not Available [facility] [address] [facility] [place], [address], 07/26/2021 10:10:47 07/23/20 21 07/26/2021 IGP,R FX APTIM A HPV ALL PTH clinician provided ICD10: commen t Z12.4 Not Available [facility] [address] [facility] [place], [address], 07/26/2021 10:10:47 07/23/20 21 07/26/2021 IGP,R FX APTIM A HPV ALL PTH . . Not Available [facility] [address] [facility] [place], [address], 07/26/2021 10:10:47 07/23/20 21 07/26/2021 IGP,R FX APTIM A HPV ALL PTH note: commen t The Pap smear is a scree parker test desig torri to aid in the detec tion of aiyana ligna nt and malig nant condi tions of the uteri ne cervi x. It is not a diagn ostic proce dure and shoul d not be used as the sole means of detec ting cervi mayi cance r. Both false -posi tive and false -nega tive repor ts do occur . Not Available [facility] [address] [facility] [place], [address], 07/26/2021 10:10:47 07/23/20 21 07/26/2021 IGP,R FX APTIM A HPV ALL PTH test methodology: commen t This liqui d based ThinP rep(R ) pap test was jude torri with the use of an image guide d systelo m. Not Available [facility] [address] [facility] [place], [address], 07/26/2021 10:10:47 07/23/20 21 07/26/2021 IGP,R FX APTIM A HPV ALL PTH . commen t The HPV DNA refle x crite leonardo were not met with this speci men resul t there fore, no HPV testi ng was perfo rmed. Not Available [facility] [address] [facility] [place], [address], 07/26/2021 10:10:47 03/27/20 22 03/27/2022 US, thyro id No observ ation record ed. [id number] [facility] [address] [place], [address], 10/02/2022 06:51:47 Result Notes None recorded. 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 Procedures Surgical History Date Name Laterality Status Provider Name and Address Organization Details Recorded Time 1 Date of Last Pap Smear completed Not Available [facility] 10/02/2022 06:40:20 1 Most Recent Mammogram completed Not Available [facility] 10/02/2022 06:40:20 5 Orthopedic Surgery completed Not Available [facility] 10/02/2022 06:40:20 5 ACADEMIC SUCCESS COORDINATOR Surgery completed Not Available [facility] 10/03/19 06:40:20 Imaging Results Imaging Date Name Status LastModified by Organiz ation Details LastModified Time 03/27/2022 US, thyroid completed [id number] [facility] [address] [place], [address], 10/02/2022 06:51:47 Procedure Notes None recorded. Medical Equipment None Reported. Allergies Allergen ID Allergen Name Allergen Category Reaction Reaction Severity Criticality Documentation Date Start Date Code Code System Note Provider Name and Address Organization Details Recorded Time 58772 Substance with sulfonami de structure and antibacte rial mechanism of action (substanc e) medicatio n other Not available Not available 10/02/2022 46933 8003 SNOMED rash swell ing in mouth Not Available [facility] 06:51:38 48359 Celebrex medicatio n other severe Not available 10/02/2022 78505 7 RxNorm swell ing mouth Not Available [facility] 06:51:38 Medications Name Sig Start Date Stop Date Status Note LastModified by Organization Details LastModified Time prednisone 10 mg tablet TAKE 3 TABS DAILY X3 DAYS THEN 2 TABS DAILY X3 DAYS THEN 1 TAB DAILY X3 DAYS TAKE WITH FOOD 03/05 completed Not Available Not Available Not Available doxycycline hyclate 100 mg capsule 03/31 completed Not Available Not Available Not Available clindamycin HCl 300 mg capsule 03/31 completed Not Available Not Available Not Available azithromyci n 250 mg tablet TAKE 2 TABLETS BY MOUTH TODAY, THEN TAKE 1 TABLET DAILY FOR 4 DAYS 03/11 completed Not Available Not Available Not Available pravastatin 40 mg tablet TAKE 40 MG BY MOUTH AT BEDTIME 03/05 completed Not Available Not Available Not Available hydrocodone 5 mg-acetamin ophen 325 mg tablet TAKE 1 TABLET BY MOUTH EVERY 6 HOURS NEEDED FOR PAIN 07/23 completed Not Available Not Available Not Available Nystop 100,000 unit/gram topical powder active Not Available Not Available Not Available fluocinonid e 0.05 % topical gel USE ON AFFECTED AREA BEFORE MEALS AND AT BEDTIME 07/23 completed Not Available Not Available Not Available meloxicam 15 mg tablet TAKE 1 TABLET BY MOUTH EVERY DAY 03/05 completed Not Available Not Available Not Available permethrin 5 % topical cream 03/31 completed Not Available Not Available Not Available metronidazo le 500 mg tablet TAKE 1 TABLET BY MOUTH EVERY 12 HOURS 03/07 completed Not Available Not Available Not Available ciprofloxac in 500 mg tablet TAKE 1 TABLET BY MOUTH EVERY 12 HOURS 03/07 completed Not Available Not Available Not Available peg-electro lyte solution 420 gram oral solution 07/14 completed Not Available Not Available Not Available tramadol 50 mg tablet TAKE 1 TABLET BY MOUTH EVERY 6 HOURS NEEDED FOR PAIN 03/05 completed Not Available Not Available Not Available triamcinolo ne acetonide 0.1 % topical cream active Not Available Not Available Not Available levothyroxi ne 75 mcg tablet one tablet daily in morning x 90 days active Not Available Not Available No t Available oxycodone-a cetaminophe n 5 mg-325 mg tablet 07/23 completed Not Available Not Available Not Available levothyroxi ne 88 mcg tablet TAKE 1 TABLET BY MOUTH EVERY DAY 03/05 completed Not Available Not Available Not Available amoxicillin 875 mg tablet TAKE 1 TABLET BY MOUTH TWICE A DAY FOR 10 DAYS 07/23 completed Not Available Not Available Not Available famotidine 20 mg tablet TAKE 1 TABLET BY MOUTH TWICE A DAY FOR 10 DAYS 07/23 completed Not Available Not Available Not Available benzonatate 100 mg capsule TAKE 2 CAPSULES BY MOUTH TWICE A DAY 03/05 completed Not Available Not Available Not Available doxycycline monohydrate 100 mg capsule 03/31 completed Not Available Not Available Not Available pantoprazol e 40 mg tablet,iris yed release TAKE 1 TABLET BY MOUTH EVERYDAY AT BEDTIME 03/05 completed Not Available Not Available Not Available hyoscyamine sulfate 0.125 mg tablet TAKE 1 TABLET BY MOUTH TWICE A DAY 03/31 completed Not Available Not Available Not Available cyanocobala min (vit B-12) 1,000 mcg/mL injection solution INJECT 1 ML EVERY WEEK BY SUBCUTANE OUS ROUTE IN THE MORNING FOR 90 DAYS. active Not Available Not Available No t Available clotrimazol e-betametha sone 1 %-0.05 % topical cream 07/19 completed Not Available Not Available Not Available zolpidem 5 mg tablet TAKE 1 TABLET BY MOUTH AT BEDTIME 03/05 completed Not Available Not Available Not Available levofloxaci n 500 mg tablet 07/23 completed Not Available Not Available Not Available methylpredn isolone 4 mg tablets in a dose pack TAKE 6 TABLETS ON DAY 1 DIRECTED ON PACKAGE AND DECREASE BY 1 TAB EACH DAY FOR A TOTAL OF 6 DAYS 03/07 completed Not Available Not Available Not Available clobetasol 0.05 % scalp solution 07/23 completed Not Available Not Available Not Available ondansetron 4 mg disintegrat ing tablet 07/23 completed Not Available Not Available Not Available naproxen 500 mg tablet TAKE 1 TABLET TWICE A DAY WITH FOOD 07/23 completed Not Available Not Available Not Available Boostrix Tdap 2.5 Lf unit-8 mcg-5 Lf/0.5 mL intramuscul ar syringe UTD active Not Available Not Available N ot Available pravastatin active Not Available Not A vailable Not Available levocetiriz ine 5 mg tablet TAKE 1 TABLET (5 MG TOTAL) BY MOUTH DAILY. 03/05 completed Not Available Not Available Not Available Prevnar 13 (PF) 0.5 mL intramuscul ar syringe INJ 0.5 ML IM UTD 03/05 completed Not Available Not Available Not Available Tirosint 75 mcg capsule TAKE ONE Capsule BY MOUTH EVERY MORNING 2022 active Not Available Not Available Not Avai lable FINANCIAL REPORTING ANALYST Thyroid 30 mg tablet TAKE 1 1/2 TABLETS BY MOUTH DAILY 07/23 completed Not Available Not Available Not Available BD Insulin Syringe Ultra-Fine 1 mL 31 gauge x 5/16 INJECT B12 ONCE WEEKLY X 90 DAYS active Not Available Not Available No t Available Afluria 2212-6677(P F) 45 mcg (15 mcg x 3)/0.5 mL intramuscul ar syringe ADM 0.5ML UTD active Not Available Not Available No t Available Nasal Allergy 55 mcg spray aerosol USE 2 SPRAYS INTO EACH NOSTRIL ONCE DAILY 03/07 completed Not Available Not Available Not Available Afluria Qd 2018- (36 mos up)(PF)60 mcg (15 mcg x4)/0.5 mL IM syringe ADM 0.5ML IM UTD 03/05 completed Not Available Not Available Not Available ID NOW COVID-19 Test Kit TEST DIRECTED TODAY 03/05 completed Not Available Not Available Not Available Fluzone High-Dose Quad (PF) 240 mcg/0.7 mL IM syringe PHARMACY ADMINISTE RED 03/05 completed Not Available Not Available Not Available BinaxNOW COVID-19 Ag Self Test kit TEST DIRECTED TODAY 03/05 completed Not Available Not Available Not Available Vitals Date Recorded Body mass index (BMI) Body height Body temperature Body weight Systolic blood pressure Diastolic blood pressure Provider Name and Address Organization Details Last Updated DateTime 1 27.9 kg/m2 160.66 cm 97.6 [degF] 28240.1 9 g 126 mm[Hg] 80 mm[Hg] Not Available [facility] 3 06:43:38 Date Recorded Body mass index (BMI) Body height Oxygen saturation Oxygen saturation in Arterial blood by Pulse oximetry Heart rate Body temperature Body weight Systolic blood pressure Diastolic blood pressure Provider Name and Address Organization Details Last Updated DateTime 2 28.6 kg/m2 160.66 cm 97 % 97 % 76 /min 97.7 [degF] 44268.5 6 g 140 mm[Hg] 85 mm[Hg] Not Available [facility] 3 06:43:38 Date Recorded Body mass index (BMI) Body height Heart rate Body temperature Body weight Systolic blood pressure Diastolic blood pressure Provider Name and Address Organization Details Last Updated DateTime 2 29.5 kg/m2 160.66 cm 71 /min 97.2 [degF] 88209.5 2 g 132 mm[Hg] 86 mm[Hg] Not Available [facility] 3 06:43:38 Date Recorded Body height Oxygen saturation Oxygen saturation in Arterial blood by Pulse oximetry Heart rate Body temperature Systolic blood pressure Diastolic blood pressure Provider Name and Address Organization Details Last Updated DateTime 2 160.66 cm 97 % 97 % 87 /min 97.7 [degF] 130 mm[Hg] 70 mm[Hg] Not Available [facility] 3 06:43:38 Date Recorded Body height Body mass index (BMI) Body weight Heart rate Respiratory rate Systolic blood pressure Diastolic blood pressure Provider Name and Address Organization Details Last Updated DateTime 3 160.66 cm 29 kg/m2 95370.0 2 g 91 /min 67 /min 133 mm[Hg] 71 mm[Hg] Ailyn Haji Silvestre [place] [employer] [facility] 3 09:45:25 Social History Question Answer Notes LastModified by [employer] Details LastModified Time Tobacco Smoking Status Never Smoker Not Available [facility] 10/02/2022 06:40:14 What Is Your Level Of Alcohol Consumption? Occasional [id number] Information not available 10/02/2022 What Is Your Level Of Caffeine Consumption? 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 [id number] Information not available 10/02/2022 Do You Use Your Seat Belt Or Car Seat Routinely? Yes [id number] Information not available 10/02/2022 Do You Use Any Illicit Or Recreational Drugs? No [id number] Information not available 10/02/2022 Sex: Female Functional Status Question Answer Note LastModified by [employer] Details LastModified Time What is your exercise level? None [id number] Information not available 10/02/2022 Mental Status None recorded. Family History Relationship Description Onset Age of this Age Resolved Age Notes LastModified by Organization Details LastModified Time Sister Atrial fibrillation [id number] Not available 10/02/2022 06:40:24 Medical History Condition Response OTHER # 1 Y HIGH CHOLESTEROL / HYPERLIPIDEMIA Y Gynecological History Statement/Question Response Abnormal Pap N Date of Last Pap Smear 07/23/2021 Current Control Method Menopause Age at Menarche 14 Most Recent Mammogram 08/09/2020 Obstetrics History GPAL:G 3 P 2 0 1 2 Type Value Full Term 2 Spontaneous 1 Living 2 Total 3 Past Encounters Encounter ID Performer Location Encounter Start Date Encounter Closed Date Diagnosis/Indication Diagnosis SNOMED-CT Code Diagnosis ICD10 Code Diagnosis Note [id number] _ATHENA_M IGRATION_ DEFAULT_1 _1 , 07/23/2021 00:00:00 07/23/2021 10:42:06 [id number] [facility] [address] [place] [address] 12/14/2021 00:00:00 12/14/2021 16:03:19 [id number] [facility] [address] [place] [address] 03/11/2022 00:00:00 03/11/2022 16:55:44 [id number] [facility] [address] [place] [address] 07/23/2022 00:00:00 07/23/2022 10:12:31 [id number] Jennifer Armendariz MD [facility] [address] [place] [address] 03/07/2023 09:24:27 03/07/2023 10:04:00 Hypothyroidism 24065836 E03.9 TSH and DT4 in range- continue on tirosint 75 mcg daily. She was reminded to take her tirosint on empty stomach with glass of water and wait one hour to eat or have her coffee in morning and up to 4 hours if ever taking any heartburn or reflux medication s to help optimize absorption . Discussed paleo like diet with restrictio n of GMOs to help with energy and to optimize absorption of vitamins and minerals and reduce inflammati on. Vitamin B1 2 deficiency (non anemic) 58191555 E53.8 Trial on B12 injections as patient has good energy. Spent up to 25 minutes preparing to see the patient (eg, review of tests), obtaining and/or reviewing separately obtained history, performing a medically appropriat e examinatio n and evaluation , counseling and educating the patient, ordering medication s, tests, along with documentin g clinical informatio n in the electronic health record, fran camara interpreti ng results and communicat ing results to the patient. Patient can be followed by PCP - she/he is aware of my resignatio n and last day of May 16. If needed his/her PCP can refer patient to another endocrinol ogist in the area. All questions /concerns answered and refills necessary at visit today. Health Concerns Section Related Observation LastModified by Organization Detai ls LastModified Time None Recorded Concern Status LastModified by Organization Details LastModified Time None Recorded Advance Directives Directive None Recorded Payers Encounter Date Sequence Insurance Name Policy Number Policy Kaplan Covered Member ID Kaplan Member ID Guarantor Name 03/07/2023 1 [place] Escobar Jay [id number] Escobar Jay 03/07/2023 2 [place] [id number] Escobar Jay [id number] Escobar Jay Notes Date Note Type Note Provider Name and Address Organization Details Recorded Time 03/07/2023 text/html 72 yo female com es in for follow up in management of hypothyroidism, B12 def and fatigue. last seen in Jul at that time we continued tirosint 75 mcg daily and B12 supplementation. She feels overall good but does have some fatigue. She has stable weight and good sleep, no issues with palpitations or flutters. labs from 03/26:glucose 106 mg/dLCr 1.07 mg/dLLFT normalTSH of 0.701 uIU/mlB12/folate normalFT4 of 1.18 ng/dLH/H 13.139.3ANA 1:40 from December Jennifer Armendariz MD [address] [facility], [facility] [address], [place], [address], [place] [facility] [employer] 03/07/2023 10:09:24 OBGyn Episode No OBEpisode recorded.
--- OUTSIDE RECORDS SUMMARY | 2024-11-13 16:56 | XMS_ITS | Continuity of Care Document ---
Author Organization [facility] Address [address] [place] [address] [address] [place] [address] Phone Care Team Providers Care Detailer Name Role Phone Mckenna OD, Alejandro Unavailable Unavailable Advance Directives Directive Yes / No Effective Date File Name No Information Encounters Encounter Description Practice Location Reason(s) For Visit Diagnoses Date Provider Providers Copied on Encounter [facility], [address], [place], [place], [id number], tel:[phone] [facility] No Information 6-200 5 Mckenna OD Alejandro. [address] [place] [address], [place], [place], [facility], . tel:[phone] Referring Provider: [facility], [place], [place], [facility]. tel:[phone] Family History Family Member Type Diagnosis Age At Onset No Information Payers Payer name Insurance type Covered republican ID Authoriza tion(s) No Information Social History [...]
--- OUTSIDE RECORDS SUMMARY | 2024-11-13 16:56 | XMS_ITS | Referral Summary ---
Author Organization [facility] [employer] Address [address] [place] [address] Care Team Providers Care Research Administrator Name Role Phone Jonathan Molina MD Primary Care Provider [phone] Allergies Active Allergy Reactions Criticality Noted Date [...] loss (SNHL) of both ears 0 03/01/2022 Social History Tobacco Use Types Packs/Day Years Used Date Smoking Tobacco: Never Smokeless Tobacco: Never Comments Unknown Sex and Gender Information Value Date Recorded Sex Assigned at Not on file Legal Sex Female 7:30 PM [employer] Gender Identity Not on file Sexual Orientation Not on file Last Filed Vital Signs Vital Sign Reading Time Taken Comments Blood Pressure 132/80 07/14/2023 2:32 PM [employer] Pulse 87 07/14/2023 2:32 PM [employer] Temperature 37.1 C (98.7 F) 07/14/2023 2:32 PM [employer] Respiratory Rate 16 07/14/2023 2:32 PM [employer]AN [employer]IVER Oxygen Saturation 98% 07/14/2023 2:32 PM [employer] Inhaled Oxygen Concentration - - Weight 72.6 kg (160 lb) 07/14/2023 2:32 PM [employer]AN [employer] Height 157.5 cm (5' 2 ) 07/14/2023 2:32 PM [employer]AN [employer] Body Mass Index 29.26 07/14/2023 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
--- OUTSIDE RECORDS SUMMARY | 2024-11-13 16:56 | XMS_ITS | Clinical Summary ---
Author Organization [facility] [place] Address [address] [place] [address] Phone Care Team Providers Care Toll Test Worker Name Role Phone iVni Persaud MD Primary Care Provider [phone] Allergies Active Allergy Reactions Criticality Noted Date Comments Celecoxib Swelling Low 03/05/2021 Sulfa (Sulfonamide Antibiotics) Other (See Comments) 07/03/2010 Numb tongue Medications pravastatin (PRAVACHOL) 40 mg Oral tabletIndicatio ns:Diffuse cystic mastopathy Take 40 mg by mouth Daily LATE. Active VITAMIN E ORALIndications :Diffuse cystic mastopathy Take by mouth. Active OMEGA-3 FATTY ACIDS (OMEGA 3 ORAL)Indication s:Diffuse cystic mastopathy Take by mouth. Active CALCIUM ORALIndications :Diffuse cystic mastopathy Take by mouth. Active levothyroxine 88 mcg tablet TAKE 1 TABLET BY MOUTH EVERY DAY 12/14/2020 Active zolpidem (AMBIEN) 5 mg tablet TAKE 1 TABLET BY MOUTH AT BEDTIME NEEDED 12/11/2020 Active Active Problems Patient Care Coordination No te Formatting of this note migh t be different from the original. 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 Gender Identity Not on file Sexual Orientation Not on file Occupation Industry Job Start Date Job End Date Not on file Not on file Not on file Not on file Last Filed Vital Signs Vital Sign Reading Time Taken Comments Blood Pressure 166/100 03/05/2021 9:37 AM CDT Pulse 87 03/05/2021 9:37 AM CDT Temperature 36.7 C (98.1 F) 03/05/2021 9:37 AM CDT Respiratory Rate 15 03/05/2021 9:37 AM CDT Oxygen Saturation 98% 03/05/2021 9:37 AM CDT Inhaled Oxygen Concentration - - Weight 72.6 kg (160 lb) 03/05/2021 9:37 AM CDT Height 162.6 cm (5' 4 ) 03/05/2021 9:37 AM CDT Body Mass Index 27.46 03/05/2021 9:37 AM CDT Plan of Treatment Health Maintenance Due Date Last Done Comments DTAP/TDAP/TD VACCINES (1 - Tdap) 1970 COLORECTAL SCREENING 1996 Colorectal Cancer Screening 1996 FIT-DNA Q 3 years 1996 FIT/FOBT Q 1 year 1996 Flex Sig/CT Colonography Q 5 years 1996 PNEUMOCOCCAL VACCINE 50+ YEA RS (1 of 1 - PCV) 2001 ZOSTER VACCINE (1 of 2) 2001 BREAST CANCER SCREENING 07/03/2011 07/03/20 10, 06/22/2010, 06/15/2009, Additional history exists OSTEOPOROSIS SCREENING 2016 INFLUENZA VACCINE (#1) 2024 RSV VACCINE (60+ or ) (1 - 1-dose 75+ series) 2026 Procedures Procedure Name Priority Date/Time Associated Diagnosis Comments MAMMO DIAGNOSTIC UNI LEFT W OR WO CAD Routine 07/03/2010 4:41 PM CURRICULUM COACH Diffuse cystic mastopathy from Last 3 Months or Most Recently Relevant to Health Maintenance Results * MAMMO DIGITAL DIAG UNI LEFT (07/03/2010 4:41 PM CURRICULUM COACH) Anatomical Region Laterality Modality Breast Left Mammography Narrative 07/05/2010 9:46 AM CURRICULUM COACH LEFT BREAST FULL FIELD DIGITAL DIAGNOSTIC MAMMOGRAM WITH COMPUTER AIDED DETECTION LEFT BREAST ULTRASOUND Date: 07/03/2010 History: Palpable abnormality at the 12:00 position of the left breast. Technique: A left breast full field digital diagnostic mammogram was performed and compared with the patient's previous study from [facility] in [place], [place] dated June 2010. Breast Composition: Heterogeneously dense, which lowers the sensitivity of mammography. Findings: No new dominant masses, areas of asymmetry or suspicious clustered microcalcifications are identified within the left breast. CAD was utilized. A left breast ultrasound was performed. In the region of interest, a benign-appearing mass is identified at the 12:00 position very deep within the breast. Differential diagnosis for this includes a cyst versus a loculated fat lobule. This does not appear to represent a solid mass and is not suspicious. OVERALL ASSESSMENT: BI-RADS Category: 2, benign findings. Recommendation: Annual mammography is recommended. Clinical followup is recommended for the patient's left breast lump which most likely represents very dense breast tissue. Also at the 12:00 position very deep within the breast is either a cyst or a loculated fat lobule. Procedure Note Lisset Gomez - 07/05/2010 LEFT BREAST FULL FIELD DIGITAL DIAGNOSTIC MAMMOGRAM WITH COMPUTER AIDEDDETECTION LEFT BREAST ULTRASOUND Date: 07/03/2010 History: Palpable abnormality at the 12:00 position of the left breast. Technique: A left breast full field digital diagnostic mammogram wasperformed and compared with the patient's previous study from [facility] in [place], [place] dated June 2010. Breast Composition: Heterogeneously dense, which lowers the sensitivity ofmammography. Findings: No new dominant masses, areas of asymmetry or suspiciousclustered microcalcifications are identified within the left breast. CADwas utilized. A left breast ultrasound was performed. In the region of interest, abenign- appearing mass is identified at the 12:00 position very deep withinthe breast. Differential diagnosis for this includes a cyst versus aloculated fat lobule. This does not appear to represent a solid mass andis not suspicious. OVERALL ASSESSMENT: BI-RADS Category: 2, benign findings. Recommendation: Annual mammography is recommended. Clinical followup isrecommended for the patient's left breast lump which most likelyrepresents very dense breast tissue. Also at the 12:00 position very deepwithin the breast is either a cyst or a loculated fat lobule. us Lisha Gregg MD MAMMO ORDERABLES Final Result from Last 3 Months or Most Recently Relevant to Health Maintenance Insurance BLUE ACCESS/TRUE BLUE PPO MEDICARE Care Teams Toll Test Worker Relationship Specialty Start Date End Date Vini Persaud MD [address] [place] [phone] PCP - General Internal Medicine 07/03/10
--- OUTSIDE RECORDS SUMMARY | 2024-11-13 16:56 | XMS_ITS | Encounter Summary ---
Author Organization [facility] Address [address] [place] [address] Care Team Providers Care Electronic Publications Specialist Name Role Phone Vini Persaud MD Primary Care Provider [phone] Jonathan Molina MD Primary Care Provider [phone] Encounter Details Date Type Department Care Team (Late st Contact Info) Description 10/02/2016 Abstract [facility] CONVERSION [address] [place] [address] , Generic ConversionMD Social History Tobacco Use Types Packs/Day Years Used Date Smoking Tobacco: Never Assessed Comments Unknown Sex and Gender Information Value Date Recorded Sex Assigned at Not on file Legal Sex Female 7:46 PM CDT Gender Identity Female 08/14/2021 4:54 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
--- OUTSIDE RECORDS SUMMARY | 2024-11-13 16:56 | XMS_ITS | Encounter Summary ---
Author Organization [facility] Address [address] [place] [address] Care Team Providers Care City Mail Carrier Name Role Phone Vini Persaud MD Primary Care Provider [phone] Jonathan Molina MD Primary Care Provider [phone] Encounter Details Date Type Department Care Team (Late st Contact Info) Description 04/19/2016 Abstract [facility] CONVERSION [address] [place] [address] , Generic ConversionMD Social History Tobacco Use Types Packs/Day Years Used Date Smoking Tobacco: Never Assessed Comments Unknown Sex and Gender Information Value Date Recorded Sex Assigned at Not on file Legal Sex Female 7:46 PM CDT Gender Identity Female 08/14/2021 4:54 PM 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
--- OUTSIDE RECORDS SUMMARY | 2024-11-13 16:56 | XMS_ITS | Continuity of Care Document ---
Author Organization [facility] Address [address] [place] [address] Phone Care Team Providers Care Account Service Associate Name Role Phone Azam Leroy MD Unavailable [...] Providers Copied on Encounter [facility] , [address] [facility] [address], [facility], tel:[phone] [facility] No Information [address] [place] [facility] [place], [place], [id number] . tel: [phone] [facility] , [address], [address], [place] [phone] [facility] Tear of medial meniscus of right knee, unspecified tear type, unspecified whether old or current tear, initial encounter b0 [address] [place] [facility] [place], [place], [id number] . tel: [phone] OFFICE/OUTPAT IENT VISIT NEW [facility] , [address] [facility] [address], [place], [address], [place] [phone] [facility] Pain in right kneeTear of medial meniscus of right knee, unspecified tear type, unspecified whether old or current tear, initial encounter [address] [place], [place], [place], [id number] . tel: [phone] Referring Provider: Vini Méndez, [address] [place] [address], [address] . tel:[phone] Family History Family Member Type Diagnosis Age At Onset dad Problem (finding) Heart disease sister Problem (finding) hypertension mom Problem (finding) Diabetes Payers Payer name Insurance type Covered libertarian ID Authoriza tion(s) Medicare E2 OT [id number] [place] [place] Life Supplement F [id number] 2 Social History Type Description Quantity Date [...]
--- OUTSIDE RECORDS SUMMARY | 2024-11-13 16:59 | XMS_ITS | Continuity of Care Document ---
Author Organization [facility] Address [address] [place] [address] Phone Care Team Providers Care Auto Transmission Mechanic Name Role Phone Azam Leroy MD Unavailable [...] Providers Copied on Encounter [facility] , [address] [facility] [address], [facility], tel:[phone] [facility] No Information [address] [place] [address] [facility] [address] [place], [place], [address] . tel: [phone] [facility] , [address], [address], [place] [phone] [facility] Tear of medial meniscus of right knee, unspecified tear type, unspecified whether old or current tear, initial encounter b0 [address] [place] [address] [facility] [address] [place], [place], [address] . tel: [phone] OFFICE/OUTPAT IENT VISIT NEW [facility] , [address] [facility] [address], [place], [address], [place] [phone] [facility] Pain in right kneeTear of medial meniscus of right knee, unspecified tear type, unspecified whether old or current tear, initial encounter [address], [place], [place], [id number] . tel: [phone] Referring Provider: Vini Méndez, [address] [place] [address], [address] . tel:[phone] Family History Family Member Type Diagnosis Age At Onset dad Problem (finding) Heart disease sister Problem (finding) hypertension mom Problem (finding) Diabetes Payers Payer name Insurance type Covered green party ID Authoriza tion(s) Medicare E2 OT [id number] [place] [employer] [place] Life Supplement F [id number] 2 Social History Type Description Quantity Date [...]
--- OUTSIDE RECORDS SUMMARY | 2024-11-13 16:59 | XMS_ITS | Continuity of Care Document ---
Author Organization [facility] Address [address] [place] [address] [address] [place] [address] Phone Care Team Providers Care Carbon Paper Interleafer Name Role Phone Mckenna OD, Alejandro Unavailable Unavailable Advance Directives Directive Yes / No Effective Date File Name No Information Encounters Encounter Description Practice Location Reason(s) For Visit Diagnoses Date Provider Providers Copied on Encounter [facility], [address], [place], [place], [id number], tel:[phone] [facility] No Information 6[address] 5 Mckenna OD Alejandro. [address] [place] [address], [place], [place], [facility], . tel:[phone] Referring Provider: [facility], [place], [place], [facility]. tel:[phone] Family History Family Member Type Diagnosis Age At Onset No Information Payers Payer name Insurance type Covered democrat ID Authoriza tion(s) No Information Social History [...]
[2024-11-13 17:05] VITALS: BP 132/76; PULSE 86; RESP 18; TEMP 37.2; O2SAT 99
--- NOTE | 2024-11-13 17:24 | ED_ITS ---
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 She was on a riding lawnmower when she slipped off the seat, twisting her left ankle and foot on the ground. Injury occurred approximately 2 hours prior to arrival. She iced the area at home but is unsure if this provided any relief. She is pain- free at rest, but pain increases significantly with weight-bearing. Denies numbness or tingling in the leg or foot. Related Data Home Medications ?Medication ?Instructions ?Recorded ?Confirmed ?Last Taken ?Type Lluvia-Dalton 2 tab-cap PO DAILY 06/04/21 10/26/24 06/13/21 History cholecalciferol (vitamin D3) 250 250 mcg PO DAILY 06/04/21 10/26/24 06/13/21 History mcg (10,000 unit) capsule coenzyme Q10 200 mg capsule (Co 200 mg PO DAILY 06/04/21 10/26/24 06/13/21 History Q-10) [id number] 1 cap PO DAILY 06/04/21 10/26/24 06/13/21 History oil 350 mg-400 mg capsule Allergies Allergy/AdvReac Type Severity Reaction Status Date / Time celecoxib Allergy Severe Swelling Verified 11/13/24 17:07 sulfur Allergy Severe Swelling Verified 11/13/24 17:07 Review of Systems Review of Systems: CONSTITUTIONAL: Denies body aches, fever, chills, or sweats. EYES: Denies visual changes, redness, or discharge. ENT: Denies rhinorrhea, congestion, sore throat, or otalgia. CARDIOVASCULAR: Denies chest pain, palpitations, or edema. RESPIRATORY: Denies cough or dyspnea. GASTROINTESTINAL: Denies abdominal pain, nausea, vomiting, or diarrhea. GENITOURINARY: Denies dysuria or hematuria. SKIN: Denies rash, itching, or wounds. MUSCULOSKELETAL: + left ankle and foot pain NEUROLOGIC: Denies headache, numbness, tingling, or weakness. PSYCH: Denies depression or anxiety. PMFSH Past Medical History Medical History Abnormal breast tissue Carpal tunnel syndrome on right Vitamin B12 deficiency Vitamin D deficiency Insomnia Hypothyroidism Arthritis Positive DIONNA Hyperlipidemia Surgical History Surgical History H/O tubal ligation (~1984) H/O colonoscopy 2020 Family History Family History Father Acute myocardial infarction Mother Diabetes mellitus Sibling Atrial fibrillation, chronic sister Social History Social History Social History: 10/05/24 patient declined SDOH Smoking status: Never smoker Second hand tobacco smoke exposure: No Alcohol intake: former Drinks per week: 2 Substance use: never Substance use type: does not use Do You Feel Safe in your Home?: Yes Lack of Transportation: No Lack of Food: Never True Current Housing: I Have Housing Concerned About Future Housing: No Difficulty Paying Gas/Electric Bills: No Difficulty Paying for Meds: No Currently Unemployed: No Education: High School Diploma/GED Difficulty w/ Childcare or Family Care: No Living arrangements: with family Additional living arrangements comments: Occupation/Education: retired Gender identity (if verbalized by the patient): Female Sexual Orientation (if Verbalized by the Patient): Straight or Heterosexual Spiritual care concerns: No Agree to blood products: Yes Comments At time of signature, I have reviewed and agree with nursing past medical, surgical, social and family history unless otherwise noted. Please see nursing chart for further information. There is no relevant family history pertinent to the presenting complaint Exam Narrative: GENERAL: Well-appearing, well-nourished, and in no acute distress. HEAD: Normocephalic, atraumatic. EYES: EOMI. No redness or drainage. Conjunctivae normal. ENT: Mucous membranes pink and moist. NECK: Normal AROM. CHEST: No respiratory distress. EXTREMITIES: Left leg:Mild tenderness to the medial ankle soft tissue with edema or deformity. Mild localized areas of edema to the lateral ankle and foot with very mild tenderness to palpation. Distal sensation intact. Capillary refill normal. Pedal pulse normal. Full range of motion of the ankle with mild pain with flexion of the ankle. SKIN: Warm, dry, no rash. Capillary refill normal. Normal skin turgor. NEURO: No focal deficits. Alert and oriented x3. Gait steady. PSYCH: Normal affect. No signs of depression or anxiety. Course Course Level of Care: Express Care Visit Vital Signs Vital signs: Vital Signs Temperature 98.9 F 11/13/24 17:05 Pulse Rate 86 11/13/24 17:05 Respiratory Rate 18 11/13/24 17:05 Blood Pressure 132/76 11/13/24 17:05 Pulse Oximetry 99 11/13/24 17:05 Oxygen Delivery Room Air 11/13/24 17:05 Temperature 98.9 F 11/13/24 17:05 Pulse Rate 86 11/13/24 17:05 Respiratory Rate 18 11/13/24 17:05 Blood Pressure 132/76 11/13/24 17:05 Pulse Oximetry 99 11/13/24 17:05 Oxygen Delivery Room Air 11/13/24 17:05 Reviewed MDM - Extremity Injury (Lower) MDM Narrative Medical decision making narrative: Ankle and foot x-rays are negative. Leonidas wrap applied by RN. Instructions given for ankle and foot sprain. Orthopedic follow-up in 7-10 days if symptoms persist. Patient agrees with plan. Anticipatory guidance given. Differential Diagnosis Differential diagnosis: Likely ankle sprain and strain, ankle fracture and other (Foot fracture, foot sprain) Imaging Data Radiologist's impression: ITS Impressions Ankle X-Ray 11/13/24 17:41 IMPRESSION: No acute osseous abnormality left ankle. Foot X-Ray 11/13/24 17:47 IMPRESSION: No acute osseous abnormality left foot. Critical Care Time Critical Care Time Critical Care Time: No Discharge Plan Discharge Clinical Impression: Sprain of foot, left Qualifiers: Encounter type: initial encounter Qualified Code(s): S93.602A - Unspecified sprain of left foot, initial encounter Left ankle sprain Qualifiers: Encounter type: initial encounter Involved ligament of ankle: unspecified ligament Qualified Code(s): S93.402A - Sprain of unspecified ligament of left ankle, initial encounter Patient Disposition: Home Condition: Stable Instructions: Ankle Sprain (DC), P.R.I.C.E. Treatment (ED) Additional Instructions: Your ankle and foot x-rays are negative for fracture. You have been placed in an Leonidas wrap for compression. Rest, Elevate and ice the ankle and foot. Take Tylenol for pain. Advance your activity as tolerated. If symptoms have not improved in 7-10 days, please follow-up with orthopedics for further evaluation. Your blood pressure was elevated above 120/80 today at Urgent Care. This puts you above the threshold for follow up. Please schedule a followup visit with your personal physician as soon as possible, for further evaluation and treatment. Even blood pressure exceeding 120/80 may indicate pre-hypertension. Patient Language: Vincentian Prescriptions: No Action zolpidem 5 mg tablet 5 mg PO HS Qty: 30 2RF cholecalciferol (vitamin D3) 250 mcg (10,000 unit) Capsule 250 mcg PO DAILY coenzyme Q10 [Co Q-10] 200 mg Capsule 200 mg PO DAILY [place] 3 350-400 mg Capsule 1 cap PO DAILY Lluvia-Dalton 2 tab-cap PO DAILY calcium carbonate 400 mg calcium (1,000 mg) tablet,chewable 400 mg PO DAILY Qty: 30 0RF levothyroxine [Tirosint] 75 mcg capsule 75 mcg PO DAILY Qty: 90 1RF pravastatin 40 mg tablet See Rx Instructions .ROUTE .COMPLEX Qty: 90 1RF Dose Instruction: TAKE 1 TABLET BY MOUTH EVERY DAY AT BEDTIME Rx Instructions: TAKE 1 TABLET BY MOUTH EVERY DAY AT BEDTIME lisinopril 10 mg tablet 10 mg PO DAILY Qty: 90 1RF Follow-up/Referrals: Marcus Cheung MD [Physician] - UNKNOWN,DOCTOR [Primary Care Provider] - Time of Disposition: 17:59
== END 2024-11-13 17:59 | disposition home or self-care (01) ==
PROVIDERS: Emergency Provider Nurse Practitioner
DX: S93.602A Unspecified sprain of left foot, initial encounter (principal); S93.402A Sprain of unspecified ligament of left ankle, initial encounter; E03.9 Hypothyroidism, unspecified; E78.5 Hyperlipidemia, unspecified; W17.89XA Other fall from one level to another, initial encounter
CPT/HCPCS: 73610; 73630; 99213; G0463

== ENCOUNTER 2025-05-04 10:51 | Outpatient (CLI) | payer MEDICARE, BC, SELFPAY ==
--- OUTSIDE RECORDS SUMMARY | 2005-02-26 05:15 | XMS_ITS | Continuity of Care Document ---
Author Organization [facility] Address [address] [place] [address] [address] [place] [address] Phone Care Team Providers Care Datastage Developer Name Role Phone Mckenna OD, Alejandro Unavailable Unavailable Advance Directives Directive Yes / No Effective Date File Name No Information Encounters Encounter Description Practice Location Reason(s) For Visit Diagnoses Date Provider Providers Copied on Encounter [facility], [address], [place], [place], [id number], tel:[phone] [facility] No Information 6-200 5 Mckenna OD Alejandro. [address] [address], [place], [place], [facility], . tel:[phone] Referring Provider: [facility], [place], [place], [facility]. tel:[phone] Family History Family Member Type Diagnosis Age At Onset No Information Payers Payer name Insurance type Covered alliance party ID Authoriza tion(s) No Information Social History Type Description Quantity Date Captured Comments Sex Female Smoking Status No Information Chief Complaint And Reason For Visit No Information Reason For Referral Reason For Referral No Information History Of Present Illness Encounter Date Complaint History Of Prese nt Illness No Information Functional Status Date Functional Assessmen t No Information Instructions Date Instruction Additional Infor mation No Information Assessments Type Assessment Date No Information Patient Care Teams Name Effective Dates (start - stop) Status Members No Information
--- OUTSIDE RECORDS SUMMARY | 2017-09-29 11:37 | XMS_ITS | Continuity of Care Document ---
Author Organization [facility] Address [address] [place] [address] Phone Care Team Providers Care Wet End Operator Name Role Phone Azam Leroy MD Unavailable Unavailabl e Allergies, Adverse [...] Providers Copied on Encounter [facility] , [address] [facility] [address], [facility], tel:[phone] [facility] No Information [address] [place] [address] [facility] [address] [place], [place], [address] . tel: [phone] [facility] , [address], [address], [place] [phone] [facility] Tear of medial meniscus of right knee, unspecified tear type, unspecified whether old or current tear, initial encounter b0 [address] [place] [address] [facility] [address] [place], [place], [address] . tel: [phone] OFFICE/OUTPAT IENT VISIT NEW [facility] , [address] [facility] [address], [place], [address], [place] [phone] [facility] Pain in right kneeTear of medial meniscus of right knee, unspecified tear type, unspecified whether old or current tear, initial encounter [address] [place], [place], [place], [address] . tel: [phone] Referring Provider: Vini Méndez, [address] [place] [address], [address] . tel:[phone] Family History Family Member Type Diagnosis Age At Onset dad Problem (finding) Heart disease sister Problem (finding) hypertension mom Problem (finding) Diabetes Payers Payer name Insurance type Covered democrat ID Authoriza tion(s) Medicare E2 OT [id number] [place] [employer] Life Supplement F [id number] 2 Social History Type Description Quantity Date [...]
--- OUTSIDE RECORDS SUMMARY | 2025-05-04 10:30 | XMS_ITS | Encounter Summary ---
Author Organization [facility] Address [address] [place] [address] Care Team Providers Care Quality Control Supervisor Name Role Phone Unavailable Primary Care Provider Unavailabl e Reason for Referral * Radiology Services (Routine) - Pending Review Specialty Diagnoses / Procedures Referred By Adonis boateng Referred To Contact Diagnoses Leukopenia, unspecified type Procedures US ABDOMEN COMPLETE Mark Joshi MD [address] [facility] [employer] [address] [place] [address] Phone: tel: fax: [place] [phone] Referral ID Status Reason Start Date Expiration Date Visits Requested Visits Authorized [id number] Pending Review ST[facility] CTS 05/04/2025 06/04/2026 1 1 Reason for Visit * Reason Comments Establish Care Encounter Details Date Type Department Care Team (Late st Contact Info) Description 05/04/2025 10:30 AM CDT Office Visit [facility] Oncology and Hematology [facility] [address] [place] [address] Mark Joshi MD [address] [facility] [employer] [address] [place] [address] Chronic anemia (Primary Dx); Leukopenia, unspecified type Social History Tobacco Use Types Packs/Day Years Used Date Smoking Tobacco: Never Smokeless Tobacco: Never Tobacco Cessation:Counseling Given: Not Answered Alcohol Use Standard Drinks/Week Comments Yes 0 (1 standard drink = 0.6 oz pur e alcohol) rarely Comments No Sex and Gender Information Value Date Recorded Sex Assigned at Not on file Legal Sex 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 Gender Identity Not on file Sexual Orientation Not on file Occupation Industry Job Start Date Job End Date Not on file Not on file Not on file Not on file documented as of this encounter Last Filed Vital Signs Vital Sign Reading Time Taken Comments Blood Pressure 124/77 05/04/2025 10:10 AM CDT Pulse 80 05/04/2025 10:10 AM CDT Temperature 36.8 C (98.2 F) 05/04/2025 10:10 AM CDT Respiratory Rate 16 05/04/2025 10:1 0 AM CDT Oxygen Saturation 97% 05/04/2025 10: 10 AM CDT Inhaled Oxygen Concentration - - Weight 72.5 kg (159 lb 12.8 oz) 025 10:10 AM CDT Height 162.6 cm (5' 4) 05/04/2025 10:1 0 AM CDT Body Mass Index 27.43 05/04/2025 10:10 AM CDT documented in this encounter Plan of Treatment Upcoming Encounters Date Type Department Care Team (Late st Contact Info) Description 05/19/2025 4:30 PM CDT Telephone Check Up [facility] Oncology and Hematology - [place] [address] [place] [address] [facility] [address] [place] [address] Mark Joshi MD [address] [facility] [address] [place] [address] Scheduled Orders Name Type Priority Associated Diagnoses Orde r Schedule DIONNA SCREEN W/REFLEX Lab Routine Leukopenia, unspecified type Expected: 05/04/2025, Expires: 05/04/2026 CBC WITH DIFFERENTIAL Lab Stat Chronic anemia Expected: 05/04/2025, Expires: 05/04/2026 COMPREHENSIVE METABOLIC PANEL Lab Stat Chronic anemia Expected: 05/04/2025, Expires: 05/04/2026 FLOW CYTOMETRY PANEL Lab Routine Leukopenia, unspecified type Expected: 05/04/2025, Expires: 05/04/2026 FERRITIN Lab Routine Chronic anemia Expected: 05/04/2025, Expires: 05/04/2026 IRON, TIBC, AND PERCENT SATURATION Lab Routine Chronic anemia Expected: 05/04/2025, Expires: 05/04/2026 LACTATE DEHYDROGENASE Lab Routine Chronic anemia Expected: 05/04/2025, Expires: 05/04/2026 METHYLMALONIC ACID Lab Routine Chronic anemia Expected: 05/04/2025, Expires: 05/04/2026 TRANSFERRIN RECEPTOR TFR SOLUBLE Lab Routine Chronic anemia Expected: 05/04/2025, Expires: 05/04/2026 VITAMIN B12 AND FOLATE Lab Routine Chronic anemia Expected: 05/04/2025, Expires: 05/04/2026 US ABDOMEN COMPLETE Imaging Routine Leukopenia, unspecified type 1 Occurrences starting 05/04/2025 until 05/04/2026 documented as of this encounter Visit Diagnoses Diagnosis Chronic anemia- Primary Anemia, unspecified Leukopenia, unspecified type documented in this encounter
--- NOTE | 2025-05-04 11:08 | CY_PTH ---
PATIENT: Escobar Jay LOC: ANHLAB #:[id number] AGE/SX: 74/F ROOM: RE05/04/[address]: Mark Joshi MD : 1950 BED: DIS: 05/04/2025 SPEC #: [id number] RECD: 05/05/25 07:38 STATUS: BRINDA REQ #: [id number] SONJA: 05/04/25 11:[address]: Mark Joshi DEPT: [facility] Cytology RECD BY: Catrina Forte ENTERED: 05/05/25 07:39 SP TYPE: Cytology OTHR DR: Zoe López APRN Tissues: A - Flow Procedures: Flow Cytometry
[2025-05-04 11:11] LABS: Hematocrit 42.1 % (37.0-47.0); Hemoglobin 13.6 g/dL (12.0-15.0); Immature Granulocyte Percent A 0.2 % (0-0.5); Lymphocytes Absolute Auto 1.45 K/mm3 (0.9-3.2); Mean Corpuscular HGB Conc 32.3 g/dl (32-36); Mean Corpuscular Hemoglobin 29.6 pg (26-34); Mean Corpuscular Volume 91.5 fl (80-100); Nucleated Red Blood Cells Absolute Auto 0.000 K/mm3 (0.0-0.012); Nucleated Red Blood Cells Perc 0.0 % (0.0-0.2); Platelet Count Result 209 k/mm3 (150-375); Red Blood Count 4.60 M/mm3 (4.2-5.4); White Blood Count 5.1 K/mm3 (4.5-10.0)
--- OUTSIDE RECORDS SUMMARY | 2025-05-04 11:42 | XMS_ITS | Clinical Summary ---
[facility] Address [address] [place] [address] Phone Care Team Providers Care Community Midwife Name Role Phone Unavailable Primary Care Provider Unavailabl e Allergies Active Allergy Reactions Criticality Noted Date Comments Celecoxib Swelling Low 03/05/2021 Sulfa (Sulfonamide Antibiotics) Other (See Comments) 07/03/2010 Numb tongue Medications pravastatin (PRAVACHOL) 40 mg Oral tabletIndicatio ns:Diffuse cystic mastopathy Take 40 mg by mouth Daily LATE. Active VITAMIN E ORALIndications :Diffuse cystic mastopathy Take by mouth. Active OMEGA-3 FATTY ACIDS (OMEGA 3 ORAL)Indication s:Diffuse cystic mastopathy Take by mouth. Active Tirosint 75 mcg Capsule Take 1 Capsule by mouth daily in the morning. 04/30/2023 Active lisinopriL (PRINIVIL) 10 mg tablet Take 10 mg by mouth daily. 11/10/2023 Active Active Problems Patient Care Coordination No te Formatting of this note migh t be different from the original. Pt denies any family hx of breast/ovarian ca Problem Noted Date Diagnosed Date Hyperlipidemia Thyroid disease Encounters Date Type Department Care Team Description 05/04/2025 10:30 AM CDT Office Visit [facility] Oncology and Hematology - [place] [address] [place] [address] Mark Joshi MD Chronic anemia (Primary Dx); Leukopenia, unspecified type from Last 3 Months Family History Medical History Relation Name Comments No Known Problems Child 1 No Known Problems Child 2 No Known Problems Father Diabetes Mother diabetes Heart Disease Sister Relation Name Status Comments Child 1 Alive Child 2 Alive Father Mother Sister Alive Social History Tobacco Use Types Packs/Day Years Used Date Smoking Tobacco: Never Smokeless Tobacco: Never Tobacco Cessation:Counseling Given: Not Answered Alcohol Use Standard Drinks/Week Comments Yes 0 (1 standard drink = 0.6 oz pur e alcohol) rarely Comments No Sex and Gender Information Value Date Recorded Sex Assigned at Not on file 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 Gender Identity Not on file Sexual Orientation [...] Mass Index 27.43 05/04/2025 10:10 AM CDT Plan of Treatment Upcoming Encounters Date Type Department Care Team (Late st Contact Info) Description 05/19/2025 4:30 PM CDT Telephone Check Up [facility] Oncology and Hematology - [place] [address] [facility] [address] [place] [address] Mark Joshi MD [address] [facility] [address] [place] [address] Health Maintenance Due Date Last Done Comments Traditional Medicare (ACO) A nnual Wellness Visit 1970 COLORECTAL SCREENING 1996 Colorectal Cancer Screening 1996 FIT-DNA Q 3 years 1996 FIT/FOBT Q 1 year 1996 Flex Sig/CT Colonography Q 5 years 1996 PNEUMOCOCCAL VACCINE 50+ YEA RS (1 of 1 - PCV) 2001 ZOSTER VACCINE (1 of 2) 2001 OSTEOPOROSIS SCREENING 2016 INFLUENZA VACCINE (#1) 2025 BREAST CANCER SCREENING 10/15/2025 10/16/19 25, 10/15/2024, 05/21/2024, Additional history exists RSV VACCINE (60+ or ) (1 - 1-dose 75+ series) 2026 DTAP/TDAP/TD VACCINES (3 - T d or Tdap) 06/19/2033 06/19/2023, 10/12/2013 Procedures Procedure Name Priority Date/Time Associated Diagnosis Comments MAMMO DIAGNOSTIC UNI LEFT W OR WO CAD Routine 07/03/2010 4:41 PM WOOD MACHINIST Diffuse cystic mastopathy from Last 3 Months or Most Recently Relevant to Health Maintenance Results * MAMMO DIGITAL DIAG UNI LEFT (07/03/2010 4:41 PM WOOD MACHINIST) Anatomical Region Laterality Modality Breast Left Mammography Narrative 07/05/2010 9:46 AM WOOD MACHINIST LEFT BREAST FULL FIELD DIGITAL DIAGNOSTIC MAMMOGRAM WITH COMPUTER AIDED DETECTION LEFT BREAST ULTRASOUND Date: 07/03/2010 History: Palpable abnormality at the 12:00 position of the left breast. Technique: A left breast full field digital diagnostic mammogram was performed and compared with the patient's previous study from [facility] in [place], [place] dated June 2010. Breast Composition: Heterogeneously [...] compared with the patient's previous study from [facility] in [place], [place] dated June 2010. Breast Composition: Heterogeneously [...] Most Recently Relevant to Health Maintenance Insurance BS BLUE ACCESS/TRUE BLUE PPO MEDICARE MEDICARE PART A AND B [facility]
--- OUTSIDE RECORDS SUMMARY | 2025-05-04 11:42 | XMS_ITS | Clinical Summary ---
Author Organization [facility] Address [address] [place] [address] Care Team Providers Care Straight Truck Driver Name Role Phone Jonathan Molina MD Primary Care Provider [phone] Allergies Active Allergy Reactions Criticality Noted Date Comments Celecoxib Swelling,Unknown,Oth er (see comment) High 03/05/2021 Celebrex Sulfa Antibiotics Swelling,Unknown,Oth er (see comment) Medium 07/03/2010 Numb tongue Tongue swelling Substance with sulfonamide structure and antibacterial mechanism of action (substance) Medications levothyroxine 88 MCG tablet Take 88 mcg by mouth daily. 1 Active pravastatin 40 MG tablet Take 1 tablet (40 mg total) by mouth daily. @@ HS Active HYDROcodone-acetami nophen 5-325 MG tabletIndications:A cute Pain < 7 Day Supply Take 1 tablet by mouth every 6 (six) hours as needed for Pain. Indications: Acute Pain < 7 Day Supply 10 tablet 1 Active ondansetron 4 MG disintegrating tablet Take 1 tablet (4 mg total) by mouth every 8 (eight) hours as needed for Nausea. 20 tablet 1 Active lisinopril (PRINIVIL) 10 MG tablet Take 1 tablet (10 mg total) by mouth daily. 4 Active TIROSINT 75 MCG capsule Take 1 capsule by mouth every morning. Active zolpidem (AMBIEN) 5 MG tablet Take 1 tablet (5 mg total) by mouth nightly at bedtime. at bedtime. 4 Active vitamin E 100 UNIT capsule Take by mouth. Active calcium citrate-vitamin D-magnesium 600 mg/1000 IU/300 mg oral liquid Take by mouth. Active Vitamin B12 100 MCG tablet Take 0.5 tablets (50 mcg total) by mouth daily. Active cefdinir (OMNICEF) 300 MG Cap capsuleIndications: Bronchitis Take 1 capsule (300 mg total) by mouth 2 (two) times daily. 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 Vitamin B12 deficiency (non anemic) 12/25/2022 Dysfunction of both eustachian tubes 03/01/2022 Sensorineural hearing loss (SNHL) of both ears 0 03/01/2022 Diverticulitis 03/04/2019 Overview (10/18/2024): Avoid consuming nuts abs berries to avoid flair ups Hypercholesterolemia 10/06/2017 Hyperthyroidism 10/06/2017 Immunizations Immunization Administration Dates Next Due Influenza Adult (Generic) [...] CDT Gender Identity Female 08/14/2021 4:54 PM ENERGY CONTROL OFFICER Sexual Orientation Not on file Last Filed [...] 11:59 AM CDT Height 165.1 cm (5' 5) 10/18/2024 11:59 AM CDT Body Mass Index 26.69 10/18/2024 11:59 AM CDT Plan of Treatment Health Maintenance Due Date Last Done Comments Colorectal Cancer Screening Colonoscopy (10 Years) 1950 Hepatitis C 1969 Pneumococcal Vaccine: 50+ Years (1 of 1 - PCV) 2001 Zoster Vaccines (1 of 2) 2001 Annual Medicare Wellness Visit 2016 Dexa Scan (General) 2016 COVID-19 Vaccine ( - season) 2025 RSV Immunization or 60+ Years (1 - 1-dose 75+ series) 2026 Mammogram Screening 10/15/2026 10/15/2024, 05/21/2024, 11/10/2023, Additional history exists DTaP, Tdap and Td Vaccines (3 - Td or Tdap) 06/19/2033 06/19/2023, 10/12/2013 PHQ-2 (Physician [place]) Completed 10/18/2024 Meningococcal B Vaccine Aged Out No l onger eligible based on patient's age to complete this topic Meningococcal Vaccine Aged Out No dulce lexi eligible based on patient's age to complete this topic RSV Immunizations Under 20 Months Aged Out No longer eligible based on patient's age to complete this topic Procedures Procedure Name Priority Date/Time Associated Diagnosis Comments MG SCREENING W OSVALDO ANTONIETA DIGI Routine 10/15/2024 10:38 AM CDT Encounter for screening mammogram for malignant neoplasm of breast from Last 3 Months or Most Recently Relevant to Health Maintenance Results * MG SCREENING W OSVALDO ANTONIETA DIGI (10/15/2024 10:38 AM CDT) Anatomical Region Laterality Modality Breast Bilateral Mammography 10/15/2024 4:06 PM CDT Impressions 10/15/2024 4:18 PM CDT ===== IMPRESSION: ===== 1. Stable mammographic appearance with no new findings to suggest malignancy in either breast. Assessment: ACR BI-RADS 2 - BENIGN FINDING(S) Recommendation: 1:Routine Screening Bilateral Comments: Ordered By: DAT CALDERON Interpreted By: Miguel Hurst, 10/15/2024 4:06 PM Narrative 10/15/2024 4:18 PM CDT [facility] [address] [place] [address] EXAMINATION: Digital bilateral screening mammogram with 3-D [...] either breast to suggest malignancy. us Dat Calderon MD MAMMO Final Result from Last 3 Months or Most Recently Relevant to Health Maintenance Insurance MEDICARE [facility] Care Teams Straight Truck Driver Relationship Specialty Start Date End Date Jonathan Molina MD [address] [place] [id number] PCP - General FAMILY PRACTICE 03/27/22
--- OUTSIDE RECORDS SUMMARY | 2025-05-04 11:42 | XMS_ITS | Encounter Summary ---
Author Organization [facility] Address [address] [place] [address] Care Team Providers Care Cyber Security Specialist Name Role Phone Vini Persaud MD Primary Care Provider [phone] Jonathan Molina MD Primary Care Provider [phone] Encounter Details Date Type Department Care Team (Late st Contact Info) Description 01/28/2013 Abstract [facility] CONVERSION [address] [place] [address] , Generic ConversionMD Social History Tobacco Use Types Packs/Day Years Used Date Smoking Tobacco: Never Assessed Comments Unknown Sex and Gender Information Value Date Recorded Sex Assigned at Not on file Legal Sex Female 7:46 PM CDT Gender Identity Female 08/14/2021 4:54 PM DUAL 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
--- OUTSIDE RECORDS SUMMARY | 2025-05-04 11:42 | XMS_ITS | Clinical Summary ---
Author Organization [facility] [employer] Address [address] [place] [address] Care Team Providers Care Arts Education Teacher Name Role Phone Jonathan Molina MD Primary Care Provider [phone] Allergies Active Allergy Reactions Criticality Noted Date [...] on file Legal Sex Female 7:30 PM SHIPPING AND RECEIVING MATERIAL HANDLER Gender Identity Not on file Sexual Orientation Not on file Obstetrics History Last Filed Vital Signs Vital Sign Reading Time Taken Comments Blood Pressure 132/80 07/14/2023 2:32 PM SHIPPING AND RECEIVING MATERIAL HANDLER Pulse 87 07/14/2023 2:32 PM SHIPPING AND RECEIVING MATERIAL HANDLER Temperature 37.1 C (98.7 F) 07/14/2023 2:32 PM SHIPPING AND RECEIVING MATERIAL HANDLER Respiratory Rate 16 07/14/2023 2:32 PM SHIPPING AND RECEIVING MATERIAL HANDLER Oxygen Saturation 98% 07/14/2023 2:32 PM SHIPPING AND RECEIVING MATERIAL HANDLER Inhaled Oxygen Concentration - - Weight 72.6 kg (160 lb) 07/14/2023 2:32 PM SHIPPING AND RECEIVING MATERIAL HANDLER Height 157.5 cm (5' 2) 07/14/2023 2:32 PM SHIPPING AND RECEIVING MATERIAL HANDLER Body Mass Index 29.26 07/14/2023 2:32 PM SHIPPING AND RECEIVING MATERIAL HANDLER Plan of Treatment Health Maintenance Due Date Last Done Comments Breast Cancer Screening-Mammogram 1950 Colon Cancer Screening-Colonoscopy 1950 Depression Screening 1950 Fall Risk Assessment 1950 Hepatitis C Screening 1950 Osteoporosis Screening-Bone Density Scan 1950 Hepatitis B Screening 1969 Zoster Vaccine (1 of 2) 2001 Well Visit 65+ 2016 Pneumococcal vaccine 65+ (2 of 2 - PCV20 or PCV21) 05/31/2020 05/31/2019 Covid-19 Vaccine (4 - season) 2025 06/26/2021, 10/25/2020, 10/01/2020 Influenza Vaccine (#1) 2025 , 05/31/2019, 10/12/2013 DTaP/Tdap/Td Vaccine (3 - Td or Tdap) 06/19/2033, 10/12/2013 Insurance MEDICARE [facility]IC[facility] Care Teams Arts Education Teacher Relationship Specialty Start Date End Date Jonathan Molina MD [address] [place] [id number] PCP - General Family Medicine 07/14/23
--- OUTSIDE RECORDS SUMMARY | 2025-05-04 11:42 | XMS_ITS | Encounter Summary ---
Author Organization [facility] Address [address] [place] [address] Care Team Providers Care Precision Assembly Inspector Name Role Phone Vini Persaud MD Primary Care Provider [phone] Jonathan Molina MD Primary Care Provider [phone] Encounter Details Date Type Department Care Team (Late st Contact Info) Description 04/19/2016 Abstract [facility] CONVERSION [address] [place] [address] , Generic ConversionMD Social History Tobacco Use Types Packs/Day Years Used Date Smoking Tobacco: Never Assessed Comments Unknown Sex and Gender Information Value Date Recorded Sex Assigned at Not on file Legal Sex Female 7:46 PM CDT Gender Identity Female 08/14/2021 4:54 PM 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
--- OUTSIDE RECORDS SUMMARY | 2025-05-04 11:42 | XMS_ITS | Data Portability ---
Author Organization [employer], [facility] OFFICE Address [address] [address] Care Team Providers Care Pre Press Manager Name Role Phone ROBB HODGE Primary Care [...] None recorded. Imaging XR, knee 2017 018 [email or web address] Not available 8 17:45:57 US, lower extremity, nonvascular 2017 018 [email or web address] Not available 8 09:43:01 Medication Orders hydrocodone 5 mg-acetamin ophen 325 mg tablet 2017 018 [email or web address] Not available 8 15:54:15 clindamycin HCl 300 mg capsule 2017 018 [email or web address] Not available 8 17:45:57 diazepam 10 mg tablet 2017 018 Not available 8 17:45:57 Patient TargetsNo targets recorded. Patient Instructions Encounter Date Encounter Id Patient Instructions Last Modified By Organization Details Last Modified Time 10/07/2017 [id number] knee arthritis: care instructions Not available 10/07/2017 [...] prn. [email or web address] Not available 10/10/2017 09:43:14 11/11/2017 [id number] knee arthritis: care instructions [email or web address] Not available 11/11/2017 16:30:56 Reason for Referral None Reported. Results Created Date Observation Date Name Description Value Unit Range Abnormal Flag Note LastModifiedBy Organization Detail LastModifiedTime Result Notes None recorded. Problems Name Problem SNOMED Code Status Onset Date Resolution Date Notes Provider Name and Address Organization Details Recorded Time Hypercholestero lemia 16327814 Active 2017 Rui linton [employer] [facility] 8 16:43:33 Hyperthyroidism 33870575 Active 2017 Rui linton [employer] [facility], [facility] 8 16:43:42 Problem Notes None recorded. Medical Equipment None Reported. Allergies Allergen ID Allergen Name Allergen Category Reaction Reaction Severity Criticality Documentation Date Start Date Code Code System Note Provider Name and Address Organization Details Recorded Time 80838 Substance with sulfonami de structure and antibacte rial mechanism of action (substanc e) medicatio n Not available Not available Not available 10/07/2017 49058 8003 [facility] 8 16:43:10 05640 Celebrex medicatio n Not available Not available Not available 10/07/2017 19053 7 RxNorm Rui linton [facility], [facility] 8 16:43:18 Medications Name Sig Start Date [...] Not Available Not Available Not Avai lable [employer]ER[employer]PER[employer] Thyroid 30 mg tablet active Not Available Not Available No t Available Vitals Date Recorded Body height Body mass index (BMI) Body weight Heart rate Systolic And Diastolic Provider Name and Address Organization Details Last Updated DateTime 10/07/2017 165.1 cm 27.5 kg/m2 86174.74 g 80 /min 136/78 mm[Hg] Ruiluiza Dutta [facility] [employer] [facility], [facility] 10/07/2017 16:42:46 Date Recorded Body height Body mass index (BMI) Body weight Heart rate Systolic And Diastolic Provider Name and Address Organization Details Last Updated DateTime 11/11/2017 165.1 cm 27.5 kg/m2 59416.74 g 93 /min 136/87 mm[Hg] Rani Cerna [facility] [employer] [facility], [facility] 11/11/2017 15:53:43 Social History Question Answer Notes LastModified by Organizat ion Details LastModified Time Tobacco Smoking Status Never Smoker Rui linton [facility], [facility] 10/07/2017 16:44:05 Live Alone Or With Others? With Others [email or web address] Information not available 10/07/2017 Marital Status [email or web address] Informatio n not available 10/07/2017 What Was The Date Of Your Most Recent Tobacco Screening? 11/11/2017 Information not available 02/25/2019 What Types Of Sporting Activities Do You Participate In? Bike [email or web address] Information not available 10/07/2017 General Stress Level Medium [email or web address] Information not available 10/07/2017 Sex: Unknown Functional Status Question Answer Note LastModified by Organizat ion Details LastModified Time What is your level of alcohol consumption? Occasional [email or web address] Information not available 10/07/2017 What is your occupation? retired [email or web address] Information not available 10/07/2017 What is your exercise level? Moderate Information not available 10/07/2017 Mental Status None recorded. Family History Relationship Description Onset Age of this Age Resolved Age Notes LastModified by Organization Details LastModified Time Father No current problems or disability [email or web address] Not available 10/07 16:10:41 Mother Diabetes mellitus [email or web address] Not available 2017 16:43:53 Medical History Condition Response HIV or AIDS N Coronary Artery Disease N Gout N Kidney Stones N Hyperthyroidism N Hernia N Head Trauma/Injury N Blood Clots N Hypothyroidism N Lung Disease N Depression N COPD N Pacemaker N Anxiety Disorder N Arthritis N Cancer N Stroke N Neck Injury N Leg or Foot Ulcers N High Cholesterol N Liver Disease N Rheumatoid Arthritis N Fibromyalgia N Headaches N Kidney Disease N Heart Problems N Migraines N Thyroid Problems N Anemia N Multiple Sclerosis N Tendon Tear N Heart Attack (PR) N Ulcers N Diabetes N Bleeding Disorder N Seizures/Epilepsy N Tuberculosis N Urinary Tract Infection N Back Problems N Diverticulitis N Asthma N Lupus N Peripheral Vascular Disease N Sleep Disorder N GERD/Reflux N Aneurysm N Hepatitis N Heart Disease N Pulmonary Embolism N Hypertension N Osteoporosis N Gynecological HistoryNo gynecological history recorded. Obstetrics History GPAL:G 0 P 0 0 0 0 Past Encounters Encounter ID Performer Location Encounter Start Date Encounter Closed Date Diagnosis/Indication Diagnosis SNOMED-CT Code Diagnosis ICD10 Code Diagnosis IMO Codes Diagnosis Note [id number] Stacey Graham MD [facility] [address] [place] [address] 10/07/2017 16:01:16 10/07/2017 17:28:50 Osteoarthritis of knee 112621886 M17.11 Bilateral knee pain, RIGHT greater than LEFT, consistent with: RIGHT knee grade 2 medial compartmen t and mild patellofem oral osteoarthr osis; medial meniscal derangemen t with mild extrusion; no instabilit y Or malalignme nt. LEFT knee grade 1 medial compartmen t with mild patellofem oral osteoarthr osis; medial meniscal derangemen t without extrusion; no instabilit y or malalignme nt. Anxiety 46249038 F41.9 Malaise and fatigue 2717 42349 R53.83 E27.1 M89.9 M94.9 Antibiotic prophylaxis indicated 774817827 Z78.9 Derangemen t of meniscus 651414588 M23.306 M23.307 [id number] Stacey Graham MD [facility] [address] [facility] [address] [place] [address] 11/11/2017 15:02:35 11/11/2017 16:59:54 Osteoarthritis of knee 392506140 M17.11 Bilateral knee pain, RIGHT greater than [...] Recorded Advance Directives Directive None Recorded Payers Insurance Date Sequence Insurance Name Policy Number Policy Kaplan Covered Member ID Kaplan Member ID Guarantor Name 01/04/2018 1 MEDICARE B-[place]: [employer] Escobar Jay [id number] Escobar Jay 01/05/2018 2 [employer] Jay [id number] Ermajean Rehberger Notes Date Note Type Note Provider Name and Address Organization Details Recorded Time 10/07/2017 text/html Escobar Is a pleasant 67-year-old female who presents to clinic today for evaluation of her chronic RIGHT greater than LEFT knee pain. She was initially seen for her knee pain in early 2016 at [facility] by Dr. Hiram Head. She was [...] knee pain. She is otherwise very healthy. Charanjit linton [employer] 11/11/2017 09:06:33 11/11/2017 text/html No internal change - See last visit. Stacey linton [employer], [employer] 11/11/2017 17:24:01 OBGyn Episode No OBEpisode recorded.
--- OUTSIDE RECORDS SUMMARY | 2025-05-04 11:42 | XMS_ITS | Encounter Summary ---
Author Organization [facility] Address [address] [place] [address] Care Team Providers Care Brush Filler Hand Name Role Phone Vini Persaud MD Primary Care Provider Jonathan Molina MD Primary Care Provider [phone] Encounter Details Date Type Department Care Team (Late st Contact Info) Description 10/02/2016 Abstract [facility] CONVERSION [address] [place] [address] , Generic ConversionMD Social History Tobacco Use Types Packs/Day Years Used Date Smoking Tobacco: Never Assessed Comments Unknown Sex and Gender Information Value Date Recorded Sex Assigned at Not on file Legal Sex Female 7:46 PM CDT Gender Identity Female 08/14/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
[2025-05-04 18:43] LABS: Alanine Aminotransferase 25 U/L (6-35); Albumin Level 4.6 g/dL (3.5-5.1); Alkaline Phosphatase 80 U/L (38-126); Anion Gap 8 mmol/L (4-12); Aspartate Amino Transferase 53 U/L (14-36); Bilirubin,Total 0.7 mg/dL (0.2-1.3); Blood Urea Nitrogen 12 mg/dL (7-17); Calcium 9.4 mg/dL (8.4-10.2); Carbon Dioxide 26 mmol/L (22-30); Chloride 101 mmol/L (98-107); Estimated Glomerular Filt Rate > 60; Glucose 91 mg/dL (65-110); Potassium 4.4 mmol/L (3.4-5.0); Sodium 135 mmol/L (137-145); Total Protein 8.0 g/dL (6.3-8.2)
[2025-05-04 18:45] LABS: Iron 66 ug/dL (37-170)
[2025-05-04 18:56] LABS: Percent Iron Saturation 22 % (20-50)
[2025-05-04 19:21] LABS: Ferritin 230.00 ng/mL (11.1-264)
[2025-05-04 19:57] LABS: Vitamin B12 963.0 pg/mL (239-931)
[2025-05-06 16:08] LABS: ANA by IFA Rfx Titer/Pattern Negative (.)
== END 2025-05-04 10:52 | disposition home or self-care (01) ==
LOC: ANHLAB 10:52
PROVIDERS: PCP Nurse Practitioner Family; Visit Provider Internal Medicine Hematology & Oncology
DX: D72.819 Decreased white blood cell count, unspecified (principal); D64.9 Anemia, unspecified
CPT/HCPCS: 36415; 80053; 82607; 82728; 82746; 83540; 83550; 83615; 84238; 85025; 86038; 88184

== ENCOUNTER 2025-05-13 08:24 | Outpatient (CLI) | payer MEDICARE, SELFPAY ==
--- OUTSIDE RECORDS SUMMARY | 2005-02-26 05:15 | XMS_ITS | Continuity of Care Document ---
Author Organization [facility] Address [address] [place] [address] [address] [place] [address] Phone Care Team Providers Care Jewel Stripper Name Role Phone Mckenna OD, Alejandro Unavailable Unavailable Advance Directives Directive Yes / No Effective Date File Name No Information Encounters Encounter Description Practice Location Reason(s) For Visit Diagnoses Date Provider Providers Copied on Encounter [facility], [address], [place], [place], [id number], tel:[phone] [facility] No Information 6-200 5 Mckenna OD Alejandro. [address] [address], [place], [place], [facility], . tel:[phone] Referring Provider: [facility] Schwartz [facility], [place], [place], [facility] [place]. tel:[phone] Family History Family Member Type Diagnosis Age At Onset No Information Payers Payer name Insurance type Covered constitution party ID Authoriza tion(s) No Information Social [...]
--- OUTSIDE RECORDS SUMMARY | 2017-09-29 11:37 | XMS_ITS | Continuity of Care Document ---
Author Organization [facility] Address [address] [place] [address] Phone Care Team Providers Care Partition Notcher Name Role Phone zAam Leroy MD Unavailable Unavailabl e Allergies, Adverse Reactions, Alerts Substance Reaction Status Criticality Sulfa (Sulfonamide Antibiotics) Active No Information Medications Medication Instructions Dosage Effective Dates (start - stop) Status Comments pravastatin 40 mg tablet take 1 tablet by oral route every day 40 MG - Active Co Q-10 10 mg capsule - Active thyroid (pork) 30 mg tablet take 1 tablet by oral route every day 30 MG - Active VITAMIN D3 (unknown strength) Not Available - Active Procedures Procedure Date RADEX KNE COMPL 4/MORE VIEWS OFFICE/OUTPATIENT VISIT NEW Advance Directives Directive Yes / No Effective Date File Name No Information Encounters Encounter Description Practice Location Reason(s) For Visit Diagnoses Date Provider Providers Copied on Encounter [facility] , [address] [facility] [place] [address], [facility], tel:[phone] [facility] No Information [address] [place] [address] [facility] [place] [address] [place], [place], [id number] . tel: [phone] [facility] , [address], [address], [place] [phone] [facility] Tear of medial meniscus of right knee, unspecified tear type, unspecified whether old or current tear, initial encounter b0 [address] [place] [address] [facility] [place] [address] [place], [place], [address] . tel: [phone] OFFICE/OUTPAT IENT VISIT NEW [facility] , [address] [facility] [address], [place], [address], [place] [phone] [facility] Pain in right kneeTear of medial meniscus of right knee, unspecified tear type, unspecified whether old or current tear, initial encounter [address] [place], [place], [place], [address] . tel: [phone] Referring Provider: Vini Méndez, [address] [place] [address], [address] . tel:[phone] Family History Family Member Type Diagnosis Age At Onset dad Problem (finding) Heart disease sister Problem (finding) hypertension mom Problem (finding) Diabetes Payers Payer name Insurance type Covered green party ID Authoriza tion(s) Medicare E2 OT [id number] [place] [employer] Supplement F [id number] 2 Social History Type Description Quantity Date Captured Comments Alcohol Use Details Unknown Caffeine Use Details Unknown Tobacco Use Status No Information Smoking Status No Information Sex Female Chief Complaint And Reason For Visit No Information Reason For Referral Reason For Referral No Information Plan Of Treatment Date Type Action Status Referral Ordered: EULA HADDAD COMPL 4/MORE VIEWS RT ordered History Of Present Illness Encounter Date Complaint History Of Prese nt Illness No Information Functional Status Date Functional Assessmen t No Information Instructions Date Instruction Additional Infor mation Call for increase in pain Relate d to Pain in right knee Assessments Type Assessment Date No Information Patient Care Teams Name Effective Dates (start - stop) Status Members No Information
--- NOTE | ~2025-05-13 | US_ITS ---
Examination: US abdomen complete Clinical History: LEUKOPENIA, UNSPEC . Comparison: CT abdomen pelvis 04/11/2019 Technique: Complete abdominal sonography Findings: Liver: Normal size. Echogenic. No intrahepatic biliary ductal dilatation. Normal hepatopedal flow main portal vein. 4.5 cm septated cyst left lobe. Common duct: Normal caliber, 4 mm. Gallbladder: No stones. No wall thickening. No pericholecystic fluid. Spleen: Upper limit of normal in size at 10 cm. Pancreas: Mostly obscured by bowel gas. Kidneys: 6 mm stone right kidney. 4 mm stone left kidney. Aorta: No aneurysmal dilatation. Retrohepatic IVC: Unremarkable. IMPRESSION: 1. No acute findings. Reviewed, dictated and finalized at location R. IMPRESSION: 1. No acute findings.
--- OUTSIDE RECORDS SUMMARY | 2025-05-13 08:31 | XMS_ITS | Encounter Summary ---
Author Organization [facility] [employer] [facility] Address [address] [place] [address] Care Team Providers Care Agronomy Advisor Name Role Phone Unavailable Primary Care Provider Unavailabl e Encounter Details Date Type Department Care Team (Late Contact Info) Description 05/10/2025 Orders Only [facility] Oncology and Hematology - [place] [address] [place] [address] Mark Joshi MD [facility] [email or web address] [address] [place] [address] Social History Tobacco Use Types Packs/Day Years Used Date Smoking Tobacco: Never Smokeless Tobacco: Never Alcohol Use Standard Drinks/Week Comments Yes 0 (1 standard drink = 0.6 oz pur e alcohol) rarely Comments No Sex and Gender Information Value Date Recorded Sex Assigned at Not on file Legal Sex Female 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 Gender Identity Not on file Sexual Orientation Not on file Occupation Industry Job Start Date Job End Date Not on file Not on file Not on file Not on file documented as of this encounter Plan of Treatment Upcoming Encounters Date Type Department Care Team (Late Contact Info) Description 05/19/2025 4:30 PM CDT Telephone Check Up [facility] Oncology and Hematology - [place] [address] [place] [address] Mark Joshi MD [address] [email or web address] [address] [place] [phone] documented as of this encounter Procedures Procedure Name Priority Date/Time Associated Diagnosis Comments FLOW CYTOMETRY REPORT Routine 05/05/2025 12:26 PM CDT documented in this encounter Results * FLOW CYTOMETRY REPORT (05/05/2025 12:26 PM CDT) Mark Joshi MD PATHOLOGY/CYTOLOGY ORDERABLES F inal Result documented in this encounter Visit Diagnoses Not on filedocumented in this encounter
--- OUTSIDE RECORDS SUMMARY | 2025-05-13 08:31 | XMS_ITS | Clinical Summary ---
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 Gender Identity Not on file Sexual Orientation Not on file Obstetrics History Last Filed Vital Signs Vital Sign Reading Time Taken Comments Blood Pressure 132/80 07/14/2023 2:32 PM DOCUMENT PROCESSOR Pulse 87 07/14/2023 2:32 PM DOCUMENT PROCESSOR Temperature 37.1 C (98.7 F) 07/14/2023 2:32 PM DOCUMENT PROCESSOR Respiratory Rate 16 07/14/2023 2:32 PM DOCUMENT PROCESSOR Oxygen Saturation 98% 07/14/2023 2:32 PM DOCUMENT PROCESSOR Inhaled Oxygen Concentration - - Weight 72.6 kg (160 lb) 07/14/2023 2:32 PM DOCUMENT PROCESSOR Height 157.5 cm (5' 2) 07/14/2023 2:32 PM DOCUMENT PROCESSOR Body Mass Index 29.26 07/14/2023 2:32 PM DOCUMENT PROCESSOR Plan of Treatment Health Maintenance Due Date [...] Td or Tdap) 06/19/2033, 10/12/2013 Insurance MEDICARE [facility] MEDICARE FOR[facility]LY [facility] Care Teams Furnace Checker Relationship Specialty Start Date End Date Jonathan Molina MD [address] [place] [address] PCP - General Family Medicine 07/14/23
--- OUTSIDE RECORDS SUMMARY | 2025-05-13 08:31 | XMS_ITS | Clinical Summary ---
Author Organization [facility] [place] Address [address] [place] [address] Phone Care Team Providers Care Axminster Weaver Name Role Phone Unavailable Primary Care Provider [...] Encounters Date Type Department Care Team Description 05/10/2025 External Device Data [facility] ABSTRACTION Provider, Abstract 05/10/2025 External Device Data [facility] ABSTRACTION Provider, Abstract 05/10/2025 External Device Data [facility] ABSTRACTION Provider, Abstract 05/10/2025 Orders Only [facility] Oncology and Hematology - [place] [address] [place] [address] Mark Joshi MD 05/04/2025 10:30 AM CDT Office Visit [facility] Oncology and Hematology [place] [address] [place] [address] Mark Joshi MD Chronic anemia (Primary [...] on file Legal 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 Gender Identity Not on file Sexual Orientation [...] 05/19/2025 4:30 PM CDT Telephone Check Up [facility] Oncology and Hematology [place] [address] [place] [address] Mark Joshi MD [address] [facility] [address] [place] [address] Health Maintenance Due Date Last [...] CYTOMETRY REPORT Routine 05/05/2025 12:26 PM CDT MAMMO DIAGNOSTIC UNI LEFT W OR WO CAD Routine 07/03/2010 4:41 PM MENTAL HEALTH TECH Diffuse cystic mastopathy from Last 3 Months or Most Recently Relevant to Health Maintenance Results * FLOW CYTOMETRY REPORT (05/05/2025 12:26 PM CDT) us Mark Joshi MD PATHOLOGY/CYTOLOGY ORDERABLES F inal Result * MAMMO DIGITAL DIAG UNI LEFT (07/03/2010 4:41 PM MENTAL HEALTH TECH) Anatomical Region Laterality Modality Breast Left Mammography Narrative 07/05/2010 9:46 AM MENTAL HEALTH TECH LEFT BREAST FULL FIELD DIGITAL DIAGNOSTIC MAMMOGRAM WITH COMPUTER AIDED DETECTION LEFT BREAST ULTRASOUND Date: 07/03/2010 History: Palpable abnormality at the 12:00 position of the left breast. Technique: A left breast full field digital diagnostic mammogram was performed and compared with the patient's previous study from [facility] in [place], [place] dated June 2010. Breast Composition: Heterogeneously [...] compared with the patient's previous study from [facility] in [place], [place] dated June 2010. Breast Composition: Heterogeneously [...] a cyst or a loculated fat lobule. Lisha Gregg MD MAMMO ORDERABLES Final Result from Last 3 Months or Most Recently Relevant to Health Maintenance Insurance MEDICARE MEDICARE PART A AND B [facility] SUPP
== END 2025-05-13 08:25 | disposition home or self-care (01) ==
PROVIDERS: PCP Nurse Practitioner Family; Visit Provider Internal Medicine Hematology & Oncology
DX: D72.819 Decreased white blood cell count, unspecified (principal)
CPT/HCPCS: 76700